=== PATIENT | male | born 1965 | race Caucasian/White ===

== ENCOUNTER 2018-07-16 18:09 | Inpatient (IN) | payer MEDICAID ==
[~2018-07-16] VITALS: Ht 175.3 cm; Wt 73.5 kg
[2018-07-16 18:15] VITALS: BP_SYST 116
[2018-07-16] MEDS ORDERED: cefTRIAXone 1 GM IVPB PREMIX 50 ML IV ONE (19:30)
[2018-07-16] MEDS ORDERED: MORPHINE 4 MG/ML INJ. SYRINGE IVP ONE (19:30)
[2018-07-16] MEDS ORDERED: FOLI-43 PO (19:52)
[2018-07-16] MEDS ORDERED: MIRT15TA7 PO (19:52)
[2018-07-16] MEDS ORDERED: HYDR-2489 PO (19:52)
[2018-07-16] MEDS ORDERED: MULT-1089 PO (19:52)
[2018-07-16] MEDS ORDERED: THIA100T70 PO (19:52)
[2018-07-16] MEDS ORDERED: CYM30 PO (19:52)
[2018-07-16 20:05] LABS: BILIRUBIN,URINE NEGATIVE (NEGATIVE); BLOOD, URINE NEGATIVE (NEGATIVE); CLARITY/URINE CLEAR (CLEAR); COLOR,URINE YELLOW (YELLOW); GLUCOSE,URINE NEGATIVE (NEGATIVE); KETONES,URINE NEGATIVE (NEGATIVE); LEUKOCYTE ESTERASE ,URINE NEGATIVE (NEGATIVE); NITRITE, URINE NEGATIVE (NEGATIVE); PROTEIN URINE NEGATIVE (NEGATIVE); UROBILINOGEN,URINE 0.2 (0.2-1.0)
[2018-07-16 20:06] LABS: BASOPHILS # (AUTO) 0.1 K/uL (0.0-0.2); BASOPHILS % (AUTO) 0.8 % (0.0-2.0); EOSINOPHILS # (AUTO) 0.2 K/uL (0.0-0.4); EOSINOPHILS % (AUTO) 2.3 % (0.0-4.0); HEMATOCRIT 37.1 % (36-54); HEMOGLOBIN 12.5 g/dL (14.0-18.0); LYMPHOCYTES # (AUTO) 1.2 K/uL (1.0-5.5); LYMPHOCYTES % (AUTO) 13.1 % (20.5-51.5); MEAN CORPUSCULAR HEMOGLOBIN 33 pg (27-31); MEAN CORPUSCULAR HGB CONC 34 % (32-36); MEAN CORPUSCULAR VOLUME 98 fL (79.0-98.0); MONOCYTES # (AUTO) 0.8 K/uL (0.0-1.0); MONOCYTES % (AUTO) 8.5 % (1.7-9.3); NEUTROPHILS # (AUTO) 6.9 K/uL (1.8-7.7); NEUTROPHILS % (AUTO) 75.3 % (40.0-70.0); PLATELET COUNT (AUTO) 232 K/uL (130-430); RED BLOOD CELL COUNT(AUTO) 3.81 MIL/uL (4.2-6.2); RED CELL DISTRIBUTION WIDTH 14.8 % (9.0-15.0); WHITE BLOOD COUNT (AUTO) 9.2 K/uL (4.8-10.8)
[2018-07-16 20:16] LABS: CALCIUM 8.5 mg/dL (8.4-11.0); CREATININE 0.75 mg/dL (0.55-1.30); POTASSIUM 3.6 mmol/L (3.5-5.1)
[2018-07-16 20:17] LABS: INR 1.2 (0.80-1.20); PROTHROMBIN TIME 12.1 SECS (9.5-12.5)
[2018-07-16 20:20] LABS: ALBUMIN 2.8 g/dL (3.4-4.8); TOTAL BILIRUBIN 0.3 mg/dL (0.0-1.0)
[2018-07-16] MEDS ORDERED: fentaNYL CITRATE/PF 100 MCG/2 ML AMP IVP ONE ×3 (20:30→23:15)
[2018-07-17] MEDS ORDERED: MORPHINE 4 MG/ML INJ. SYRINGE IVP PRN (01:00)
[2018-07-17 01:19] VITALS: BP_SYST 117
[2018-07-17] MEDS ORDERED: PIPERACILLIN/TAZOBACTAM 3.375 GM/VIAL (ZOSYN) IV ONE (01:34)
[2018-07-17] MEDS ORDERED: VANCOMYCIN HCL 1000 MG/VIAL IV ONE (01:34)
[2018-07-17] MEDS: PIPERACILLIN/TAZO 3.375 GM in NS 50 ML IV SCH ×4 (02:00→20:32)
[2018-07-17] MEDS ORDERED: VANCOMYCIN HCL 1,000 MG in NS 250 ML IV ONE (02:00)
[2018-07-17] MEDS: MORPHINE 4 MG/ML INJ. SYRINGE IVP PRN ×2 (04:10→08:18)
[2018-07-17 08:00] VITALS: BP_SYST 123
[2018-07-17] MEDS ORDERED: METOCLOPRAMIDE HCL 10 MG/2 ML VIAL IVP PRN (11:30)
[2018-07-17] MEDS ORDERED: ONDANSETRON HCL 4 MG/2 ML VIAL IVP PRN ×2 (11:30→17:30)
[2018-07-17] MEDS: HYDROmorphone 2 MG/ML VIAL IVP PRN ×3 (11:55→20:34)
[2018-07-17 12:00] VITALS: BP_SYST 124
[2018-07-17] MEDS: VANCOMYCIN HCL 1,250 MG in NS 250 ML IV SCH (14:38)
[2018-07-17 17:10] VITALS: BP_SYST 117
[2018-07-17] MEDS ORDERED: fentaNYL CITRATE/PF 100 MCG/2 ML AMP IVP PRN (17:30)
[2018-07-17] MEDS ORDERED: KETOROLAC TROMETHAMINE 30 MG VIAL IVP PRN (17:30)
[2018-07-17] MEDS ORDERED: MIDAZOLAM HCL 5 MG/ML VIAL (VERSED) IV ONE (17:50)
[2018-07-17] MEDS ORDERED: PROPOFOL 200MG/ 20ML VIAL (DIPRIVAN) IV ONE (17:50)
[2018-07-17] MEDS ORDERED: LR 1,000 ML IV.SOLN IV ONE (17:50)
[2018-07-17] MEDS ORDERED: NS IRRIG SOLN 1000 ML IR ONE (17:50)
[2018-07-17] MEDS ORDERED: fentaNYL CITRATE/PF 100 MCG/2 ML AMP ONE ×2 (17:50→18:09)
[2018-07-17] MEDS ORDERED: BUPIVACAINE /EPINEPHRINE/PF 0.5% 30 ML VIAL INJ ONE (17:50)
[2018-07-17] MEDS: fentaNYL CITRATE/PF 100 MCG/2 ML AMP IVP PRN ×2 (18:07→18:20)
[2018-07-17 19:25] VITALS: BP_SYST 111
[2018-07-17] MEDS: DULoxetine HCL 30 MG CAPSULE.DR (CYMBALTA) PO SCH (20:32)
[2018-07-17] MEDS: MIRTAZAPINE 15 MG TABLET PO SCH (20:32)
[2018-07-17] MEDS: OXYCODONE/ACETAMINOPHEN *10*mg/325 mg TABLET PO PRN (22:02)
[2018-07-17 23:49] VITALS: BP_SYST 116
[2018-07-18] MEDS: HYDROmorphone 2 MG/ML VIAL IVP PRN ×6 (00:37→21:33)
[2018-07-18] MEDS: PIPERACILLIN/TAZO 3.375 GM in NS 50 ML IV SCH ×5 (02:17→20:24)
[2018-07-18] MEDS: OXYCODONE/ACETAMINOPHEN *10*mg/325 mg TABLET PO PRN ×5 (02:18→19:14)
[2018-07-18] MEDS: VANCOMYCIN HCL 1,250 MG in NS 250 ML IV SCH ×2 (02:18→14:51)
[2018-07-18 07:24] LABS: POTASSIUM 3.7 mmol/L (3.5-5.1)
[2018-07-18 07:25] LABS: CALCIUM 8.6 mg/dL (8.4-10.2); CREATININE 0.74 mg/dL (0.55-1.30)
[2018-07-18 08:07] VITALS: BP_SYST 129
[2018-07-18] MEDS: FOLIC ACID 1 MG TABLET PO SCH (08:14)
[2018-07-18] MEDS: MULTIVITAMINS TAB 1 TABLET PO SCH (08:15)
[2018-07-18] MEDS: THIAMINE HCL 100 MG TABLET PO SCH (08:15)
[2018-07-18 12:29] VITALS: BP_SYST 117
[2018-07-18 16:16] VITALS: BP_SYST 112
[2018-07-18 19:10] VITALS: BP_SYST 125
[2018-07-18] MEDS: MIRTAZAPINE 15 MG TABLET PO SCH (20:24)
[2018-07-18] MEDS: DULoxetine HCL 30 MG CAPSULE.DR (CYMBALTA) PO SCH (20:24)
[2018-07-19] MEDS: OXYCODONE/ACETAMINOPHEN *10*mg/325 mg TABLET PO PRN ×6 (01:09→23:05)
[2018-07-19 01:34] VITALS: BP_SYST 132
[2018-07-19] MEDS: VANCOMYCIN HCL 1,250 MG in NS 250 ML IV SCH ×2 (02:41→14:45)
[2018-07-19] MEDS: HYDROmorphone 2 MG/ML VIAL IVP PRN ×5 (02:42→21:26)
[2018-07-19 07:08] LABS: HEMATOCRIT 38.5 % (36-54); HEMOGLOBIN 12.8 g/dL (14.0-18.0); MEAN CORPUSCULAR HEMOGLOBIN 32 pg (27-31); MEAN CORPUSCULAR HGB CONC 33 % (32-36); MEAN CORPUSCULAR VOLUME 97 fL (79.0-98.0); NEUTROPHILS % (AUTO) 68.9 % (40.0-70.0); PLATELET COUNT (AUTO) 203 K/uL (130-430); RED BLOOD CELL COUNT(AUTO) 3.97 MIL/uL (4.2-6.2); RED CELL DISTRIBUTION WIDTH 14.2 % (9.0-15.0); WHITE BLOOD COUNT (AUTO) 6.1 K/uL (4.8-10.8)
[2018-07-19 07:09] LABS: BASOPHILS % (AUTO) 0.5 % (0.0-2.0); EOSINOPHILS # (AUTO) 0.6 K/uL (0.0-0.4); EOSINOPHILS % (AUTO) 9.1 % (0.0-4.0); LYMPHOCYTES # (AUTO) 0.7 K/uL (1.0-5.5); LYMPHOCYTES % (AUTO) 12.1 % (20.5-51.5); MONOCYTES # (AUTO) 0.6 K/uL (0.0-1.0); MONOCYTES % (AUTO) 9.4 % (1.7-9.3); NEUTROPHILS # (AUTO) 4.2 K/uL (1.8-7.7)
[2018-07-19 08:08] VITALS: BP_SYST 118
[2018-07-19] MEDS: MULTIVITAMINS TAB 1 TABLET PO SCH (08:10)
[2018-07-19] MEDS: FOLIC ACID 1 MG TABLET PO SCH (08:10)
[2018-07-19] MEDS: THIAMINE HCL 100 MG TABLET PO SCH (08:10)
[2018-07-19 09:00] LABS: CALCIUM 8.7 mg/dL (8.4-11.0); CREATININE 0.69 mg/dL (0.55-1.30); POTASSIUM 3.7 mmol/L (3.5-5.1); TOTAL BILIRUBIN 0.4 mg/dL (0.0-1.0)
[2018-07-19 09:01] LABS: ALBUMIN 2.5 g/dL (3.4-4.8)
[2018-07-19] MEDS: HYDROmorphone 1 MG INJ. 1 MG/ML AMPUL IVP PRN (09:25)
[2018-07-19 11:39] VITALS: BP_SYST 124
[2018-07-19 16:41] VITALS: BP_SYST 123
[2018-07-19] MEDS: MIRTAZAPINE 15 MG TABLET PO SCH (20:25)
[2018-07-19] MEDS: DULoxetine HCL 30 MG CAPSULE.DR (CYMBALTA) PO SCH (20:26)
[2018-07-20] MEDS: HYDROmorphone 2 MG/ML VIAL IVP PRN ×6 (01:26→22:25)
[2018-07-20] MEDS: VANCOMYCIN HCL 1,250 MG in NS 250 ML IV SCH ×2 (01:27→14:21)
[2018-07-20 01:48] VITALS: BP_SYST 111
[2018-07-20] MEDS: OXYCODONE/ACETAMINOPHEN *10*mg/325 mg TABLET PO PRN ×5 (04:07→20:44)
[2018-07-20 08:12] VITALS: BP_SYST 128
[2018-07-20] MEDS: FOLIC ACID 1 MG TABLET PO SCH (08:21)
[2018-07-20] MEDS: THIAMINE HCL 100 MG TABLET PO SCH (08:21)
[2018-07-20] MEDS: MULTIVITAMINS TAB 1 TABLET PO SCH (08:21)
[2018-07-20 12:21] VITALS: BP_SYST 127
[2018-07-20 16:53] VITALS: BP_SYST 116
[2018-07-20 20:00] VITALS: BP_SYST 109
[2018-07-20] MEDS: DULoxetine HCL 30 MG CAPSULE.DR (CYMBALTA) PO SCH (20:43)
[2018-07-20] MEDS: MIRTAZAPINE 15 MG TABLET PO SCH (20:44)
[2018-07-21] MEDS: OXYCODONE/ACETAMINOPHEN *10*mg/325 mg TABLET PO PRN ×5 (01:34→23:12)
[2018-07-21] MEDS: VANCOMYCIN HCL 1,250 MG in NS 250 ML IV SCH ×2 (01:35→14:46)
[2018-07-21 02:56] VITALS: BP_SYST 121
[2018-07-21] MEDS: HYDROmorphone 2 MG/ML VIAL IVP PRN ×5 (03:35→21:02)
[2018-07-21 08:30] VITALS: BP_SYST 139
[2018-07-21] MEDS: MULTIVITAMINS TAB 1 TABLET PO SCH (09:41)
[2018-07-21] MEDS: THIAMINE HCL 100 MG TABLET PO SCH (09:41)
[2018-07-21] MEDS: FOLIC ACID 1 MG TABLET PO SCH (09:41)
[2018-07-21 12:53] VITALS: BP_SYST 103
[2018-07-21 16:47] VITALS: BP_SYST 113
[2018-07-21] MEDS: HYDROmorphone 1 MG INJ. 1 MG/ML AMPUL IVP PRN (18:01)
[2018-07-21 20:00] VITALS: BP_SYST 109
[2018-07-21] MEDS: DULoxetine HCL 30 MG CAPSULE.DR (CYMBALTA) PO SCH (21:01)
[2018-07-21] MEDS: MIRTAZAPINE 15 MG TABLET PO SCH (21:01)
[2018-07-21 23:39] VITALS: BP_SYST 113
[2018-07-22] MEDS: HYDROmorphone 2 MG/ML VIAL IVP PRN ×5 (01:15→19:20)
[2018-07-22] MEDS: VANCOMYCIN HCL 1,250 MG in NS 250 ML IV SCH ×2 (01:23→14:22)
[2018-07-22 01:50] LABS: POTASSIUM 4.1 mmol/L (3.5-5.1)
[2018-07-22 01:51] LABS: CALCIUM 8.8 mg/dL (8.4-11.0); CREATININE 0.79 mg/dL (0.55-1.30)
[2018-07-22] MEDS: OXYCODONE/ACETAMINOPHEN *10*mg/325 mg TABLET PO PRN ×4 (03:22→20:40)
[2018-07-22] MEDS: HYDROmorphone 1 MG INJ. 1 MG/ML AMPUL IVP PRN ×2 (06:46→12:42)
[2018-07-22 07:44] VITALS: BP_SYST 125
[2018-07-22] MEDS: MULTIVITAMINS TAB 1 TABLET PO SCH (08:24)
[2018-07-22] MEDS: FOLIC ACID 1 MG TABLET PO SCH (08:24)
[2018-07-22] MEDS: THIAMINE HCL 100 MG TABLET PO SCH (08:24)
[2018-07-22 12:43] VITALS: BP_SYST 109
[2018-07-22 17:17] VITALS: BP_SYST 108
[2018-07-22 19:00] VITALS: BP_SYST 110
[2018-07-22 20:00] VITALS: BP_SYST 110
[2018-07-22] MEDS: MIRTAZAPINE 15 MG TABLET PO SCH (20:34)
[2018-07-22] MEDS: DULoxetine HCL 30 MG CAPSULE.DR (CYMBALTA) PO SCH (20:34)
[2018-07-23] MEDS: HYDROmorphone 2 MG/ML VIAL IVP PRN ×4 (00:01→13:11)
[2018-07-23 00:07] VITALS: BP_SYST 118
[2018-07-23] MEDS: VANCOMYCIN HCL 1,250 MG in NS 250 ML IV SCH ×2 (01:09→13:09)
[2018-07-23] MEDS: MULTIVITAMINS TAB 1 TABLET PO SCH (08:26)
[2018-07-23] MEDS: THIAMINE HCL 100 MG TABLET PO SCH (08:26)
[2018-07-23] MEDS: FOLIC ACID 1 MG TABLET PO SCH (08:26)
[2018-07-23] MEDS: OXYCODONE/ACETAMINOPHEN *10*mg/325 mg TABLET PO PRN ×2 (11:12→15:57)
[2018-07-23 12:14] VITALS: BP_SYST 113
[2018-07-23 14:06] VITALS: BP_SYST 121
[2018-07-23 16:00] VITALS: BP_SYST 115
== END 2018-07-23 16:25 | DRG 721 ==
LOC: SED 18:09 → SMU 07-17 00:54
PROVIDERS: ADMIT Internal Medicine Hospice and Palliative Medicine; ATTEND Internal Medicine Hospice and Palliative Medicine
PROC: 0JB80ZZ Excision of Abdomen Subcutaneous Tissue and Fascia, Open Approach (ICD-10-PCS; principal; 2018-07-17 16:45)
DX: T81.41XA Infection following a procedure, superficial incisional surgical site, initial encounter (principal); E43 Unspecified severe protein-calorie malnutrition; L03.311 Cellulitis of abdominal wall; B95.62 Methicillin resistant Staphylococcus aureus infection as the cause of diseases classified elsewhere; E66.9 Obesity, unspecified; F43.20 Adjustment disorder, unspecified; I10 Essential (primary) hypertension; J45.909 Unspecified asthma, uncomplicated; M48.00 Spinal stenosis, site unspecified; Y83.8 Other surgical procedures as the cause of abnormal reaction of the patient, or of later complication, without mention of misadventure at the time of the procedure; F32.9 Major depressive disorder, single episode, unspecified; F41.9 Anxiety disorder, unspecified; Z68.23 Body mass index [BMI] 23.0-23.9, adult; Y92.89 Other specified places as the place of occurrence of the external cause
CPT/HCPCS: 36415; 71045; 80048; 80053; 80069; 80202-TC; 81003; 83605; 85025; 85610-TC; 87040-TC; 87070; 87070-TC; 87075-TC; 87081; 87186-TC; 93005; 96365; 96375; 96376; 99285; J0696; J1170; J2250; J2270; J2543; J2704; J3010; J3370; J3490; J7030; J7040; J7050; J7120

== ENCOUNTER 2018-08-27 11:36 | Inpatient (IN) | payer MEDICAID ==
[~2018-08-27] VITALS: Ht 170.2 cm; Wt 69.9 kg
[~2018-08-27 11:36] MED LIST: CYM30 PO; FOLI-43 PO; HYDR-4274 PO; MIRT15TA7 PO; MULT-1089 PO; THIA100T70 PO
[2018-08-27 11:41] VITALS: BP_SYST 107
--- NOTE | 2018-08-27 11:48 | NUR ---
Ambulatory to bed 4
--- NOTE | 2018-08-27 11:50 | NUR ---
CHUCK Chance at bedside examining patient.
[2018-08-27] MEDS ORDERED: MORPHINE 4 MG/ML INJ. SYRINGE IVP ONE ×2 (12:00→13:45)
[2018-08-27] MEDS ORDERED: NS 1000 ML IV.SOLN IV ONE (12:00)
--- NOTE | 2018-08-27 12:10 | NUR ---
Note undone in [facility] - 08/27/18 at 1611 by YOLANDA Pt complainingf of back and stomacgh pain r/t recent back surgery: Pt stated he had back surgery with plates inserted in his lumbar region, approximately 2 months ago. Pt is complaining at pain at abdominal surgical site: Purulent drainage noted at site. Pt explained he had an infection at the site 4 weeks ago and had it "cleaned" by his doctor. Addendum: 08/27/18 at 1218 by YOLANDA Amendment undone in [facility] 08/27/18 at 1611 by JAMIL Pt complaining of back and stomach pain r/t recent back surgery: Pt stated he had back surgery with plates inserted in his lumbar region, approximately 2 months ago. Pt is complaining at pain at abdominal surgical site: Purulent drainage noted at site. Pt explained he had an infection at the site 4 weeks ago and had it "cleaned" by his doctor.
[2018-08-27 12:27] LABS: BILIRUBIN,URINE NEGATIVE (NEGATIVE); BLOOD, URINE NEGATIVE (NEGATIVE); CLARITY/URINE CLEAR (CLEAR); COLOR,URINE YELLOW (YELLOW); GLUCOSE,URINE NEGATIVE (NEGATIVE); KETONES,URINE NEGATIVE (NEGATIVE); LEUKOCYTE ESTERASE ,URINE NEGATIVE (NEGATIVE); NITRITE, URINE NEGATIVE (NEGATIVE); PROTEIN URINE NEGATIVE (NEGATIVE); UROBILINOGEN,URINE 0.2 (0.2-1.0)
--- NOTE | 2018-08-27 12:45 | NUR ---
Pt taken to radiology in stable condition
[2018-08-27 12:46] LABS: BASOPHILS # (AUTO) 0.1 K/uL (0.0-0.2); BASOPHILS % (AUTO) 0.7 % (0.0-2.0); EOSINOPHILS # (AUTO) 0.1 K/uL (0.0-0.4); EOSINOPHILS % (AUTO) 1.1 % (0.0-4.0); HEMOGLOBIN 15.5 g/dL (14.0-18.0); LYMPHOCYTES # (AUTO) 1.3 K/uL (1.0-5.5); LYMPHOCYTES % (AUTO) 15.7 % (20.5-51.5); MEAN CORPUSCULAR HEMOGLOBIN 32 pg (27-31); MEAN CORPUSCULAR HGB CONC 33 % (32-36); MEAN CORPUSCULAR VOLUME 96 fL (79.0-98.0); MONOCYTES # (AUTO) 0.7 K/uL (0.0-1.0); MONOCYTES % (AUTO) 7.9 % (1.7-9.3); NEUTROPHILS # (AUTO) 6.4 K/uL (1.8-7.7); NEUTROPHILS % (AUTO) 74.6 % (40.0-70.0); PLATELET COUNT (AUTO) 287 K/uL (130-430); RED BLOOD CELL COUNT(AUTO) 4.91 MIL/uL (4.2-6.2); RED CELL DISTRIBUTION WIDTH 14.3 % (9.0-15.0); WHITE BLOOD COUNT (AUTO) 8.6 K/uL (4.8-10.8)
--- NOTE | 2018-08-27 13:02 | NUR ---
Pt returned from radiology in stable condition
[2018-08-27 13:21] LABS: CALCIUM 8.8 mg/dL (8.4-11.0); CREATININE 0.78 mg/dL (0.55-1.30); POTASSIUM 3.9 mmol/L (3.5-5.1)
[2018-08-27 13:28] LABS: ALBUMIN 3.6 g/dL (3.4-4.8); TOTAL BILIRUBIN 0.3 mg/dL (0.0-1.0)
[2018-08-27 13:29] LABS: INR 1.1 (0.80-1.20); PROTHROMBIN TIME 11.5 SECS (9.5-12.5)
[2018-08-27] MEDS ORDERED: PIPERACILLIN/TAZO 3.375 GM in NS 50 ML IV ONE (13:45)
[2018-08-27] MEDS ORDERED: PIPERACILLIN/TAZOBACTAM 3.375 GM/VIAL (ZOSYN) IV ONE (14:02)
[2018-08-27] MEDS ORDERED: VANCOMYCIN HCL 1,000 MG in NS 250 ML IV SCH (16:00)
--- NOTE | 2018-08-27 16:44 | NUR ---
Patient will be admitted to care of Dr. burks. Admitted to Med-surge unit. Will go to room 112-A. Belongings list completed. Summary report printed. Report will be given at bedside.
--- NOTE | 2018-08-27 17:00 | NUR ---
ADMISSION NOTE Received patient from ER via gurney. Patient admitted with diagnosis of wound infection. Patient is awake, alert, oriented X 4. Patient oriented to hospital room, call light, toileting, pain management and safety-teach back done. Patient informed that Sri will be his nurse and that their room number is 112A. Personal belongings checked and Belongings List documented. Call light within reach.
--- NOTE | 2018-08-27 17:15 | NUR ---
patient aaox 4. has iv access on the left forearm #22. lungs bilaterally clear. abdomen soft and non distended. complained of back pain. vitals signs stable and documented. call lights within reach.
[2018-08-27 17:50] VITALS: BP_SYST 116
--- NOTE | 2018-08-27 18:00 | NUR ---
antibiotic iv given. and norco po pain meds.
[2018-08-27] MEDS: VANCOMYCIN HCL 1,000 MG in NS 250 ML IV SCH (18:05)
[2018-08-27] MEDS: HYDROcodone/ACETAMIN 10-325 MG TAB PO PRN (18:05)
--- NOTE | 2018-08-27 18:19 | NUR ---
PAGED PAGED DOCTOR STOCK FOR ORDERS
--- NOTE | 2018-08-27 18:48 | NUR ---
eating dinner clear liquid.
--- NOTE | 2018-08-27 19:20 | NUR ---
report given to incoming nurse Zaida AGUILAR
--- NOTE | 2018-08-27 19:30 | NUR ---
ROUNDS PATIENT RESTING COMFORTABLY IN BED, NOT IN DISTRESS, VITALS STABLE. DENIES ANY PAIN AND DISCOMFORT AT THIS TIME. ASSESSMENT DONE AND DOCUMENTED. SEE FLOWSHEET. NEEDS ATTENDED TO. SAFETY AND FALL PRECAUTION MEASURES IN PLACED. CALL LIGHT PLACED WITHIN REACH.
[2018-08-27] MEDS: HYDROmorphone 2 MG/ML VIAL IVP PRN (19:54)
[2018-08-27 20:00] VITALS: BP_SYST 107
[2018-08-27] MEDS: MIRTAZAPINE 15 MG TABLET PO SCH (20:29)
[2018-08-27] MEDS: PIPERACILLIN/TAZO 3.375/DEX-IS 50 ML IV SCH (20:29)
[2018-08-27] MEDS: DULoxetine HCL 30 MG CAPSULE.DR (CYMBALTA) PO SCH (20:29)
--- NOTE | 2018-08-27 21:05 | NUR ---
MEDICATION DUE MEDICATIONS GIVEN ORDERED, TOLERATED WELL. WILL CONTINUE TO MONITOR.
--- NOTE | 2018-08-27 23:00 | NUR ---
DR. THOMPSON MACKAY HERE AND SAW PATIENT WITH NEW ORDERS. WILL CONTINUE TO MONITOR.
[2018-08-28] MEDS: HYDROmorphone 2 MG/ML VIAL IVP PRN ×7 (00:02→22:52)
--- NOTE | 2018-08-28 00:32 | NUR ---
PATIENT RESTING: Patient resting quietly. No acute distress noted. Vital signs within normal range.
[2018-08-28 01:38] VITALS: BP_SYST 119
--- NOTE | 2018-08-28 02:13 | NUR ---
ROUNDS PATIENT ASLEEP, NOT IN DISTRESS, NO SIGNS OF ANY PAIN AND DISCOMFORT NOTED. WILL CONTINUE TO MONITOR.
[2018-08-28] MEDS: PIPERACILLIN/TAZO 3.375/DEX-IS 50 ML IV SCH ×4 (02:19→20:44)
--- NOTE | 2018-08-28 04:03 | NUR ---
ROUNDS PATIENT ASLEEP, RESPIRATIONS EVEN AND UNLABORED, WILL CONTINUE TO MONITOR.
[2018-08-28] MEDS: VANCOMYCIN HCL 1,000 MG in NS 250 ML IV SCH ×2 (05:36→17:45)
--- NOTE | 2018-08-28 06:23 | NUR ---
CLOSING NOTES PATIENT AWAKE, VITALS STABLE, NO PAIN AT THIS TIME. ALL NEEDS ATTENDED TO. SAFETY AND FALL PRECAUTION MEASURES MAINTAINED. CALL LIGHT PLACED WITHIN REACH.
--- NOTE | 2018-08-28 07:15 | NUR ---
received report from incoming nurse Zaida rn at the bedside. patient is aaox 4. has iv access on the left hand #22. dry and intact. npo status for surgery by dr Cid today. pre op checklist done. consent signed. instructed patient to be npo status. call lights within reach. no pain nor acute distress noted.
[2018-08-28 07:35] VITALS: BP_SYST 103
--- NOTE | 2018-08-28 08:31 | NUR ---
pain meds given. zozyn iv
--- NOTE | 2018-08-28 10:18 | NUR ---
dr burks came evaluate the patient.
[2018-08-28] MEDS: HYDROcodone/ACETAMIN 10-325 MG TAB PO PRN ×2 (10:21→15:39)
--- NOTE | 2018-08-28 10:21 | NUR ---
norco 10/325 mg tab given sip of water.
--- NOTE | 2018-08-28 10:22 | NUR ---
CONSULTATION PAGED/CALLED Reason for Consultation: [] WOUND INFECTION Person Who was Notified: [] KENNEDY Consulting Physician: [] DR CASTANEDA Car Mover Specialty: [] ID Ordering Physician: [] DR Ai HUERTA
--- NOTE | 2018-08-28 10:28 | NUR ---
Nutrition Update Donny Scale 18 noted. Pt admitted for Wound Infection. Diet: NPO BMI: 24 RD to follow up per nutrition care standards.
--- NOTE | 2018-08-28 11:23 | NUR ---
brought by or for the procedure on the abdominal area.
[2018-08-28] MEDS ORDERED: LR 1,000 ML IV SCH (11:42)
[2018-08-28] MEDS ORDERED: MEPERIDINE HCL/PF 25 MG/ML DISP.SYRIN IVP PRN (11:45)
[2018-08-28] MEDS ORDERED: HYDROmorphone 2 MG/ML VIAL IVP PRN ×3 (11:45)
--- NOTE | 2018-08-28 12:17 | NUR ---
still on procedure.
[2018-08-28] MEDS ORDERED: POLYMYXIN 500,000/BACIT.10,000 UNITS in NS IRR 1 L IR ONE (12:45)
--- NOTE | 2018-08-28 13:19 | NUR ---
patient is coming back from [facility] given report to juliano grullon.
--- NOTE | 2018-08-28 13:20 | NUR ---
incision and drainage done.
--- NOTE | 2018-08-28 13:38 | NUR ---
patient brought back to the room. complaining of pain.
--- NOTE | 2018-08-28 13:39 | NUR ---
dr goldstein called for regular diet on the patient.
[2018-08-28] MEDS: THIAMINE HCL 100 MG TABLET PO SCH (15:39)
[2018-08-28] MEDS: FOLIC ACID 1 MG TABLET PO SCH (15:39)
[2018-08-28 16:00] VITALS: BP_SYST 109
--- NOTE | 2018-08-28 16:00 | NUR ---
Dietitian Recommendations Add Marques BID and Prosource BID to his daily meals to assist in wound healing. Please refer to nutrition Assessment for details. KARY PERRY
--- NOTE | 2018-08-28 16:15 | NUR ---
went to smoke with kathryn urbano.
--- NOTE | 2018-08-28 17:00 | NUR ---
came back to the room. stable. no pain
--- NOTE | 2018-08-28 17:55 | NUR ---
vancomycin iv given.
--- NOTE | 2018-08-28 18:45 | NUR ---
dilaudid 2 mg iv given. assisted on adls.
--- NOTE | 2018-08-28 19:02 | NUR ---
patient eating dinner at this time.
--- NOTE | 2018-08-28 19:14 | NUR ---
PAGED PAGED PRINTING PRESS OPERATOR PHYSICIAN WALESKA DAO. SPOKE WITH ERIN IN REGARDS TO LAB RESULTS.
--- NOTE | 2018-08-28 19:15 | NUR ---
endorsed to incoming nurse Nathaly AGUILAR
--- NOTE | 2018-08-28 19:22 | NUR ---
dr marcelino called for mrsa on the abdomen. no order made so far.
--- NOTE | 2018-08-28 19:42 | NUR ---
Opening Note Patient and bedside report was received from day shift nurseSri RN. Patient is awake, resting in bed. No s/s of acute distress. Plan of care reviewed with patient who is agreeable. Bed alarm on. Safety and isolation measures in place. Call light with patient. Educated pt. to use call light for any needs. Room near nurses station. Will continue to monitor.
--- NOTE | 2018-08-28 20:00 | NUR ---
EDUCATED PT. REGARDING CONTACT ISOLATION PRECAUTIONS Patient requested to ambulate hallways. Contact isolation precautions were reviewed with patient.
[2018-08-28 20:30] VITALS: BP_SYST 105
[2018-08-28] MEDS: MIRTAZAPINE 15 MG TABLET PO SCH (20:45)
[2018-08-28] MEDS: DULoxetine HCL 30 MG CAPSULE.DR (CYMBALTA) PO SCH (20:45)
--- NOTE | 2018-08-28 20:45 | NUR ---
PAIN/DILAUDID GIVEN Patient is c/o moderate pain to back. Dilaudid was given as ordered PRN for moderate pain. See EMAR for details. Snacks were given as requested by patient. Was able to ambulate from bed to bathroom and back again with a steady gait, denying any dizziness or weakness. Safety and fall precautions in place. Bed alarm was refused; education was provided. Will continue with plan of care.
--- NOTE | 2018-08-28 21:15 | NUR ---
REFUSED BED ALARM Patient is educated on safety measures and risk for falls due to medications and potential side effects. Refused bed alarm. Will continue to encourage.
--- NOTE | 2018-08-28 22:52 | NUR ---
C/O SEVERE PAIN; DILAUDID GIVEN Patient is awake with c/o severe pain. Dilaudid was administered as ordered PRN for severe pain. See EMAR for details. Educated pt. regarding medication and potential side effects. Verbalized understanding. Safety and fall precautions were reviewed. Continues to refuse bed alarm. Room near nurses station. Encouraged to use call light for any needs. Will continue to monitor.
--- NOTE | 2018-08-29 00:28 | NUR ---
ROUNDS Patient is awake, watching tv. Inquired about his pain medications. I reviewed his PRN medications and frequency orders. Continues to get out of bed without calling. States he is "okay and fine" and refused bed alarm. Encouraged to use call light for any needs. Will continue to monitor.
[2018-08-29] MEDS: HYDROmorphone 2 MG/ML VIAL IVP PRN ×10 (00:38→23:51)
[2018-08-29] MEDS: PIPERACILLIN/TAZO 3.375/DEX-IS 50 ML IV SCH ×2 (00:52→07:53)
[2018-08-29 02:02] VITALS: BP_SYST 121
--- NOTE | 2018-08-29 02:05 | NUR ---
NEW IV SITE Patient's IV site to left hand 22g is infiltrated and was d/c by LAUREN Andersen; ice packs given for comfort. New IV site to left hand 22g started by resource nurse, Aleksandr Carnes RN. Will continue to monitor.
--- NOTE | 2018-08-29 02:34 | NUR ---
PAIN/DILAUDID GIVEN Patient is awake with c/o severe pain to "stomach and back." Given Dilaudid as ordered PRN for severe pain. Educated pt. regarding med and potential side effects. Verbalized understanding. Bed alarm remains off as requested, despite education regarding fall risk. Room near nurses station. Call light with patient. Will continue with plan of care.
[2018-08-29] MEDS: VANCOMYCIN HCL 1,000 MG in NS 250 ML IV SCH (05:22)
--- NOTE | 2018-08-29 05:27 | NUR ---
PAIN MEDICATION/DUE ABX GIVEN Awake with c/o pain. Due antibiotic and pain medication PRN for moderate pain was given by LAUREN Espinoza.
--- NOTE | 2018-08-29 06:28 | NUR ---
CLOSING NOTES All needs met throughout shift. Patient is resting with eyes closed. No s/s of acute distress. Safety precautions were maintained. SBAR report and care will be given to oncoming day shift nurse.
--- NOTE | 2018-08-29 07:12 | NUR ---
received report from lissette Andersen RN. patient asleep at this time. no pain nor acute distress noted. respiration even and unlabored. abdomen with packing dressing with old blood noted. has iv access on the left hand #22. dry and intact. call lights within reach. bed in low position. still on contact isolation noted.
[2018-08-29 07:58] VITALS: BP_SYST 108
--- NOTE | 2018-08-29 07:58 | NUR ---
DILAUDID 2 MG GIVEN.
--- NOTE | 2018-08-29 10:00 | NUR ---
dr guerrero came evaluate patient.
[2018-08-29 10:26] VITALS: BP_SYST 108
--- NOTE | 2018-08-29 10:35 | NUR ---
patient found in the cafeteria taking coffee. lemon picker the patient with Elina Carlson
[2018-08-29] MEDS: THIAMINE HCL 100 MG TABLET PO SCH (10:50)
[2018-08-29] MEDS: FOLIC ACID 1 MG TABLET PO SCH (10:50)
--- NOTE | 2018-08-29 10:50 | NUR ---
dilaudid 1 mg iv given.
[2018-08-29] MEDS: CLINDAMYCIN 600 MG in D5W 50 ML IV SCH ×3 (10:59→23:52)
[2018-08-29] MEDS: FLUCONAZOLE 100 mg/ NS 50 ML IV SCH (11:00)
[2018-08-29 11:31] VITALS: BP_SYST 140
--- NOTE | 2018-08-29 12:00 | NUR ---
antibiotic therapy given.
--- NOTE | 2018-08-29 12:43 | NUR ---
pain shot given 2 mg iv.
--- NOTE | 2018-08-29 14:05 | NUR ---
DR MACKAY CAME AND EVALUATE THE PATIENT.
--- NOTE | 2018-08-29 14:17 | NUR ---
as per dr goldstein patient can be discharge for follow up in his office and one week. and dressing daily changed with packing.
--- NOTE | 2018-08-29 15:15 | NUR ---
packing dressing changed. incisional area dry/intact with packing on it. no bleeding noted.
--- NOTE | 2018-08-29 15:20 | NUR ---
went to the bathroom.
[2018-08-29 15:41] VITALS: BP_SYST 126
--- NOTE | 2018-08-29 15:47 | NUR ---
PAIN MED 1 MG IV GIVEN. assists on adls.
--- NOTE | 2018-08-29 16:23 | NUR ---
as per Dr Cid, daily dressing on the abdomen with dry dressing on it.
--- NOTE | 2018-08-29 17:36 | NUR ---
dilaudid 2 mg iv given.
--- NOTE | 2018-08-29 18:24 | NUR ---
still eating dinner. no pain nor acute distress noted.
[2018-08-29 19:10] VITALS: BP_SYST 124
--- NOTE | 2018-08-29 19:10 | NUR ---
Initial Assessment Received patient awake watching tv. Patient is awake alert oriented x4. No s/s of any distress noted. Dressing noted to mid abdomen no signs of drainage or bleeding noted. IV noted to L and R hand g 22, no infiltrate and with good blood return. Discussed plan of care with patient and verbalized understanding. Will cont to monitor.
--- NOTE | 2018-08-29 19:21 | NUR ---
endorsed to incoming nurse Hyde RN
--- NOTE | 2018-08-29 21:10 | NUR ---
Rounds Patient is awake watching tv at this time. No s/s of any distress noted. Call light in reach, will cont to monitor.
[2018-08-29] MEDS: MIRTAZAPINE 15 MG TABLET PO SCH (21:32)
[2018-08-29] MEDS: DULoxetine HCL 30 MG CAPSULE.DR (CYMBALTA) PO SCH (21:32)
--- NOTE | 2018-08-29 23:10 | NUR ---
Rounds Patient is resting comfortably in bed with both eyes close. No distress noted. Call light in reach, will cont to monitor.
[2018-08-30 00:36] VITALS: BP_SYST 126
--- NOTE | 2018-08-30 01:10 | NUR ---
Rounds Patient is awake watching tv in bed. comfortably in bed. Call light in reach, will cont to monitor.
[2018-08-30] MEDS: HYDROmorphone 2 MG/ML VIAL IVP PRN ×7 (02:05→20:10)
--- NOTE | 2018-08-30 03:10 | NUR ---
Rounds Patient is resting comfortably in bed. Refused any assistance at this time. Call light in reach, will cont to monitor.
[2018-08-30] MEDS: CLINDAMYCIN 600 MG in D5W 50 ML IV SCH ×3 (05:41→20:04)
--- NOTE | 2018-08-30 06:47 | NUR ---
Final Notes Patient is awake watching tv at this time. No s/s of any distress noted. All needs met and anticipated by noc nurses. Call light in reach, side rails up x3. and bed alarm on for safety. Will endorse care to incoming nurse.
[2018-08-30 06:59] LABS: BASOPHILS % (AUTO) 0.6 % (0.0-2.0); EOSINOPHILS # (AUTO) 0.4 K/uL (0.0-0.4); EOSINOPHILS % (AUTO) 6.5 % (0.0-4.0); HEMATOCRIT 42.4 % (36-54); HEMOGLOBIN 13.9 g/dL (14.0-18.0); LYMPHOCYTES # (AUTO) 1.3 K/uL (1.0-5.5); LYMPHOCYTES % (AUTO) 22.4 % (20.5-51.5); MEAN CORPUSCULAR HEMOGLOBIN 32 pg (27-31); MEAN CORPUSCULAR HGB CONC 33 % (32-36); MEAN CORPUSCULAR VOLUME 97 fL (79.0-98.0); MONOCYTES # (AUTO) 0.6 K/uL (0.0-1.0); NEUTROPHILS # (AUTO) 3.4 K/uL (1.8-7.7); NEUTROPHILS % (AUTO) 59.5 % (40.0-70.0); PLATELET COUNT (AUTO) 250 K/uL (130-430); RED BLOOD CELL COUNT(AUTO) 4.39 MIL/uL (4.2-6.2); RED CELL DISTRIBUTION WIDTH 14.2 % (9.0-15.0); WHITE BLOOD COUNT (AUTO) 5.7 K/uL (4.8-10.8)
--- NOTE | 2018-08-30 08:08 | NUR ---
OPENING NOTES PATIENT RECEIVED RESTING IN BED A&O X4, PATIENT DENIES ANY ACUTE DISTRESS OR PAIN AT THIS TIME, BREATHING IS EVEN AND UNLABORED ON ROOM AIR, EDUCATED PATIENT ON PLAN OF CARE AND CALL LIGHT SYSTEM, WILL CONTINUE TO MONITOR, SAFETY PRECAUTIONS IN PLACE, CALL LIGHT WITHIN REACH.
[2018-08-30 08:13] VITALS: BP_SYST 133
[2018-08-30] MEDS: THIAMINE HCL 100 MG TABLET PO SCH (08:30)
[2018-08-30] MEDS: FOLIC ACID 1 MG TABLET PO SCH (08:30)
--- NOTE | 2018-08-30 09:30 | NUR ---
WOUND CARE ABDOMINAL DRESSING CHANGED, PACKED WITH WET TO DRY GAUZE, SLIGHT BLEEDING NOTED, PATIENT TOLERATED WELL, WILL CONTINUE TO MONITOR, SAFETY PRECAUTIONS IN PLACE, CALL LIGHT WITHIN REACH.
[2018-08-30] MEDS: VANCOMYCIN HCL 1,000 MG in NS 250 ML IV SCH ×2 (10:24→21:19)
--- NOTE | 2018-08-30 10:25 | NUR ---
NOTES PATIENT IS RESTING IN BED A&O X4, PAIN IS CONTROLLED AT THIS TIME, BREATHING IS EVEN AND UNLABORED ON ROOM AIR, PATIENT DENIES ANY ACUTE DISTRESS AT THIS TIME, WILL CONTINUE TO MONITOR, SAFETY PRECAUTIONS IN PLACE, CALL LIGHT WITHIN REACH.
[2018-08-30 11:08] VITALS: BP_SYST 126
--- NOTE | 2018-08-30 12:35 | NUR ---
NOTES PATIENT IS RESTING IN BED A&O X4, IVF INFUSING WELL WITH NO SIGNS OF INFILTRATION, BREATHING IS EVEN AND UNLABORED ON ROOM AIR, NO ACUTE DISTRESS IS NOTED, PAIN IS CONTROLLED AT THIS TIME, WILL CONTINUE TO MONITOR, SAFETY PRECAUTIONS IN PLACE, CALL LIGHT WITHIN REACH.
[2018-08-30] MEDS: FLUCONAZOLE 100 mg/ NS 50 ML IV SCH (12:49)
[2018-08-30] MEDS: HYDROcodone/ACETAMIN 10-325 MG TAB PO PRN (14:12)
[2018-08-30 15:05] VITALS: BP_SYST 128
--- NOTE | 2018-08-30 16:40 | NUR ---
NOTES PATIENT IS SITTING IN BED AFTER AMBULATING AROUND ROOM, BREATHING IS EVEN AND UNLABORED, PAIN IS CONTROLLED AT THIS TIME, NO ACUTE DISTRESS IS NOTED, WILL CONTINUE TO MONITOR, SAFETY PRECAUTIONS IN PLACE, CALL LIGHT WITHIN REACH.
--- NOTE | 2018-08-30 17:00 | NUR ---
PATIENT REMOVED IV STATED THE IV WAS SORE AND BURNING, WILL RESTART NEW ONE.
--- NOTE | 2018-08-30 18:38 | NUR ---
CLOSING NOTE PATIENT IS RESTING IN BED EATING DINNER, PATIENT DENIES ANY ACUTE DISTRESS AT THIS TIME, BREATHING IS EVEN AND UNLABORED, ALL NEEDS WERE MET THROUGHOUT SHIFT, WILL ENDORSE REPORT TO ONCOMING NURSE, SAFETY PRECAUTIONS IN PLACE, CALL LIGHT WITHIN REACH.
--- NOTE | 2018-08-30 19:40 | NUR ---
OPENING NOTES Pt and endorsement received from day shift nurse. Pt is AAOx4, standing in front of his room. Informed pt that charge nurse Virginia will insert IV on him. No complains of pain at this time. No signs of acute distress or SOB noted. Encouraged to use call light when needed. Will continue to monitor.
[2018-08-30] MEDS: MIRTAZAPINE 15 MG TABLET PO SCH (20:09)
[2018-08-30] MEDS: DULoxetine HCL 30 MG CAPSULE.DR (CYMBALTA) PO SCH (20:09)
--- NOTE | 2018-08-30 20:10 | NUR ---
IV INSERTION/DILAUDED 2MG GIVEN New IV site inserted on right hand G22 by charge nurse Virginia, with good blood return and flushable with saline. Pt complained of middle back and abdominal pain with a scale of 9/10. Dilauded 2mg IVP given as ordered and educated pt on side effects like dizziness. Encouraged deep breathing exercises and position of comfort. No signs of acute distress or SOB noted. Safety precautions in place with 2 side rails up, bed alarm on, locked and at lowest position. Call light with pt. Will continue to monitor.
[2018-08-30 20:25] VITALS: BP_SYST 122
--- NOTE | 2018-08-30 23:00 | NUR ---
RESTING Pt is resting in bed with both eyes closed. With visible chest rise and fall with unlabored breathing noted. No complains of pain at this time. No signs of acute distress noted. Safety precautions in place and call light with pt. Will continue to monitor.
[2018-08-31] MEDS: CLINDAMYCIN 600 MG in D5W 50 ML IV SCH ×5 (00:16→22:59)
[2018-08-31 01:15] VITALS: BP_SYST 122
[2018-08-31] MEDS: HYDROmorphone 2 MG/ML VIAL IVP PRN ×6 (01:54→18:26)
--- NOTE | 2018-08-31 01:54 | NUR ---
DILAUDED 2MG GIVEN Pt complained of lower abdominal pain with a scale of 9/10. Dilauded 2mg IVP given as ordered and educated pt on side effects like dizziness. Reencouraged deep breathing exercises and position of comfort. No signs of acute distress or SOB noted. Safety precautions in place and call light with pt. Will continue to monitor.
[2018-08-31] MEDS: VANCOMYCIN HCL 1,000 MG in NS 250 ML IV SCH ×3 (01:59→18:19)
--- NOTE | 2018-08-31 03:35 | NUR ---
RESTING Pt is resting in bed with both eyes closed. With visible chest rise and fall with unlabored breathing noted. No complains of pain at this time. No signs of acute distress or SOB noted. Safety precautions in place and call light with pt. Will continue to monitor.
--- NOTE | 2018-08-31 06:30 | NUR ---
DILAUDED 2MG GIVEN/CLOSING NOTES Pt complained of middle back and abdominal pain with a scale of 8/10. Dilauded 2mg IVP given as ordered at 0600. No signs of acute distress or SOB noted. All needs attended throughout the shift. Safety precautions maintained with 2 side rails up, bed alarm on, locked and at lowest position. Call light with pt. Will endorse to day shift nurse.
--- NOTE | 2018-08-31 07:43 | NUR ---
rn opening note Repost was endorsed by night nurse. Patient appears to be resting with both eyes closed no signs of any distress, breathing is equal and nonlabored. Patient has all safety precautions in place.Patient is close to nurses station. no other needs at this time. will continue to monitor.
[2018-08-31 08:00] VITALS: BP_SYST 128; BP_SYST 147
[2018-08-31] MEDS: FOLIC ACID 1 MG TABLET PO SCH (08:05)
[2018-08-31] MEDS: THIAMINE HCL 100 MG TABLET PO SCH (08:05)
[2018-08-31 08:12] LABS: ALBUMIN 2.8 g/dL (3.4-4.8); CALCIUM 8.4 mg/dL (8.4-11.0); CREATININE 0.61 mg/dL (0.55-1.30); TOTAL BILIRUBIN 0.3 mg/dL (0.0-1.0)
--- NOTE | 2018-08-31 09:55 | NUR ---
Medication Patient complains of pain medicated per order. Patient educated on side effects to call for assistance. call light is with patient. Patient scheduled iv antibiotic also given as ordered. Patient has no other needs at this time. Patient is close to nurses station. will continue to monitor.
[2018-08-31] MEDS ORDERED: WATER FOR IRRIGATION,STERILE 1,000 ML IRRIG.SOLN IR ONE (11:25)
[2018-08-31] MEDS ORDERED: SEVOFLURANE 15 MIN GAS INH ONE (11:25)
[2018-08-31] MEDS ORDERED: MIDAZOLAM HCL 5 MG/5 ML VIAL IVP ONE (11:25)
[2018-08-31] MEDS ORDERED: DEXAMETHASONE SOD PHOSPHATE 4 MG/ML VIAL IVP ONE (11:25)
[2018-08-31] MEDS ORDERED: ONDANSETRON HCL 4 MG/2 ML VIAL IVP ONE (11:25)
[2018-08-31] MEDS ORDERED: PROPOFOL 200MG/ 20ML VIAL (DIPRIVAN) IV ONE (11:25)
[2018-08-31] MEDS ORDERED: ROCURONIUM BROMIDE 10 MG/ML (ZEMURON) IV ONE (11:25)
[2018-08-31] MEDS ORDERED: LR 1,000 ML IV.SOLN IV ONE (11:25)
[2018-08-31] MEDS ORDERED: KETOROLAC TROMETHAMINE 30 MG VIAL IVP ONE (11:25)
[2018-08-31] MEDS ORDERED: fentaNYL CITRATE/PF 100 MCG/2 ML AMP IVP ONE (11:25)
[2018-08-31] MEDS: FLUCONAZOLE 100 mg/ NS 50 ML IV SCH (11:52)
[2018-08-31] MEDS: HYDROcodone/ACETAMIN 10-325 MG TAB PO PRN ×2 (11:53→20:37)
--- NOTE | 2018-08-31 11:53 | NUR ---
Pain medication/ wound care Pain medication given as ordered prior to wound care with wound care nurse. Patient is awake and alert, educated on wound care verbalized understanding. Patient has all safety precautions in place. no other needs at this time. Call light is with patient close to nurses station. will continue to monitor.
[2018-08-31 12:30] VITALS: BP_SYST 130
--- NOTE | 2018-08-31 12:30 | NUR ---
WOUND EVALUATION: Wound Consult received from Dr. Cid. Thank you, Dr. Cid, for the consult. Patient received in a Hammond Bed with an Atmos-Air 9000 mattress, awake, alert, and oriented. Patient is able to turn in bed independently. Donny Score is an 18. Past Medical History: Spinal surgery with anterior abdominal incision two months ago at [facility], had incision dehiscence and infection in the abdomen with subsequent debridement by Dr. Cid and discharge home. Now presents with similar symptoms, with pus and drainage coming from the surgical site. Patient is status post incision and drainage of abdominal wall abscess by Dr. Cid on 08/28/18. Recent Labs: WBC 5.7, RBC 4.39, hemoglobin 13.9, hematocrit 42.4, albumin 2.8. Microbiology: Urine culture results negative. Blood culture results 2 in progress. MRSA screen results negative. Wound culture results positive for MRSA. Surgical specimen wound culture results positive for MRSA. Intrinsic factors that delay wound healing: Hypoalbuminemia. Extrinsic factors that delay wound healing: Decreased mobility. Patient may need further wound care training with home health to prevent recurrence of infection, and will be trained here prior to discharge home. Wound Assessment: 1. Abdomen: Abscess, present on admission. Wound bed has 60% pink tissue, 30% yellow slough, 10% red tissue. No odor, no drainage. Undermining present from 10-2 o'clock (10 o'clock 0.2 cm; 12 o'clock 0.2 cm; 1 o'clock 1.7 cm; 2 o'clock 0.5 cm). Measures 5.0 cm x 2.1 cm x 1.2 cm.. Recommend: Cleanse wound with normal saline. Apply sure prep to corine-wound. Apply hydrogel to wound bed. Pack wound with 1/2 inch iodoform packing strip. Cover with foam dressing. Perform wound care daily, and as needed for dressing soiling or dislodgement. Also recommend: Encourage and assist patient as needed with repositioning every 2 hours with pillow support, and off-load pressure areas with pillows for pressure re-distribution. Offload, elevate and float bilateral heels with pillows. Perform skin care and monitor skin integrity Q shift. Use moisture barrier cream on buttocks and other moisture susceptible areas QID and as needed for soiling.
--- NOTE | 2018-08-31 13:03 | NUR ---
medication Patients scheduled medication given per order. Patient is awake and alert, sitting in bed, eating lunch right now. no signs of any distress, breathing is equal and non labored.patient educated pet supplies salesperson light for assistance. Call light is with patient
--- NOTE | 2018-08-31 15:51 | NUR ---
Discharge Planning: DCP faxed pt orders to [facility] [place] (f [phone] p [phone])
[2018-08-31 16:00] VITALS: BP_SYST 141
--- NOTE | 2018-08-31 16:09 | NUR ---
Per , hold Discharge order. place health and social care teacher consult. Patient is currently refusing to go to a SNF. Patient made aware and verbalizes understanding.
--- NOTE | 2018-08-31 16:26 | NUR ---
SS Notes: FLARER attempted to meet with patient; pt was unavailable. SS will follow up tomorrow.
--- NOTE | 2018-08-31 17:00 | NUR ---
wound care Wound care done per order. Medicated for pain prior to wound care. Patients scheduled medication also given as order. Patient is awake and alert. Educated patient on wound care. Patient verbalized understanding. Patient has no other needs at this time. will continue to monitor. all safety precautions in place.
--- NOTE | 2018-08-31 18:48 | NUR ---
rn close note Patient is awake and alert, sitting in bed, no signs of any distress, breathing is equal and non labored. Patient medicated for pain as requested. Patient has all safety precautions in place. Call light is with him educated to use for assistance. Patient has no other complaints at this time. Patient is stable. will endorse report to oncoming nurse at bed side.
--- NOTE | 2018-08-31 19:23 | NUR ---
OPENING NOTES Pt and endorsement received from day shift nurse. Pt is AAOx4, lying in bed while eating. IVPB patent and infusing well on right hand G22. No complains of pain or discomfort at this time. No signs of acute distress or SOB noted. Safety precautions in place with 3 side rails up, bed alarm on, locked and at lowest position. Call light with pt. Will continue to monitor.
--- NOTE | 2018-08-31 20:05 | NUR ---
SPOKE TO SANDRA FROM [facility] Spoke to Sandra from [facility] and informed her that pt is homeless and that Dr. Zayas has an order to hold discharge for the pt.
[2018-08-31 20:33] VITALS: BP_SYST 115
[2018-08-31] MEDS: MIRTAZAPINE 15 MG TABLET PO SCH (20:36)
[2018-08-31] MEDS: DULoxetine HCL 30 MG CAPSULE.DR (CYMBALTA) PO SCH (20:36)
--- NOTE | 2018-08-31 20:37 | NUR ---
NORCO 10-325 GIVEN Pt complained of left lower abdominal pain with a scale of 6/10. [place]ham 10-325mg PO given as ordered. Snacks given per pt's request. No signs of acute distress noted. Safety precautions in place and call light with pt. Will continue to monitor.
--- NOTE | 2018-08-31 23:13 | NUR ---
RESTING Pt is resting in bed with both eyes closed. With visible chest rise and fall with unlabored breathing noted. IVPB patent and infusing well. No complains of pain or discomfort at this time. No signs of acute distress or SOB noted. Safety precautions in place and call light with pt. Will continue to monitor.
[2018-09-01] MEDS: HYDROmorphone 2 MG/ML VIAL IVP PRN ×5 (00:33→21:12)
--- NOTE | 2018-09-01 00:33 | NUR ---
DILAUDED 2MG GIVEN Pt complained of left lower abdominal pain with a scale of 8/10. Encouraged deep breathing exercises and position of comfort. Dilauded 2mg IVP given as ordered. Educated pt on side effects like dizziness and safety precautions, pt verbalizes understanding. Snacks given per pt's request. No signs of acute distress or SOB noted. Safety precautions in place and call light with pt. Will continue to monitor.
[2018-09-01] MEDS: VANCOMYCIN HCL 1,000 MG in NS 250 ML IV SCH ×3 (01:24→18:13)
[2018-09-01 01:51] VITALS: BP_SYST 111
[2018-09-01] MEDS: CLINDAMYCIN 600 MG in D5W 50 ML IV SCH ×3 (05:00→17:26)
--- NOTE | 2018-09-01 05:00 | NUR ---
DILAUDED 2MG GIVEN Pt complained of left lower abdominal pain with a scale of 8/10. Dilauded 2mg IVP given as ordered. Educated pt on side effects like dizziness and safety precautions, pt verbalizes understanding. Reencouraged deep breathing exercises and position of comfort. No signs of acute distress or SOB noted. Safety precautions in place and call light with pt. Will continue to monitor.
--- NOTE | 2018-09-01 05:43 | NUR ---
CLOSING NOTES Pt is resting in bed with both eyes closed. With visible chest rise and fall with unlabored breathing noted. No complains of pain or discomfort at this time. No signs of acute distress or SOB noted. All needs attended throughout the shift. Safety precautions maintained with 2 side rails up, bed alarm on, locked and at lowest position. Call light with pt. Will continue to monitor and will endorse to day shift nurse.
[2018-09-01 08:00] VITALS: BP_SYST 143
--- NOTE | 2018-09-01 08:11 | NUR ---
Opening notes, received pt in bed, pt is aaox4, c/o pain 01/20, will medicate. iv intact and patent. safety precaution in place. call light in reach. bed in low position. will cont to monitor.
[2018-09-01] MEDS: FOLIC ACID 1 MG TABLET PO SCH (09:10)
[2018-09-01] MEDS: THIAMINE HCL 100 MG TABLET PO SCH (09:10)
--- NOTE | 2018-09-01 10:12 | NUR ---
Discharge Planning: [facility] (f [phone] p [phone]) lm message the RX order needs to worded correctly DCP made CM aware. CM spoke to Kenyatta and gave DCP correct wording and DCP spoke to patient nurse to have a order redone and to re-fax to [facility]. (IV Vanco to dose via peripheral IV; Vanco labs peak and through; wound care. DCP faxed to [facility], DCP will follow up. Addendum: 09/01/18 at 1625 by Echo Bear DP Kenyatta dozier [facility] ( [phone] p [phone]) called and requested H & P, current labs and a order for instruction on flushing. MADDIE made CM aware. Addendum: 09/01/18 at 1628 by Echo Bear DP DCP made nurse aware order is needed for flushing IV.
[2018-09-01] MEDS: FLUCONAZOLE 100 mg/ NS 50 ML IV SCH (11:24)
[2018-09-01] MEDS: HYDROcodone/ACETAMIN 10-325 MG TAB PO PRN (11:24)
[2018-09-01 12:00] VITALS: BP_SYST 109
[2018-09-01 15:36] VITALS: BP_SYST 111
[2018-09-01 16:39] VITALS: BP_SYST 111
--- NOTE | 2018-09-01 18:36 | NUR ---
CLOSING NOTES. PT HAS BEEN STABLE THE WHOLE SHIFT, PT IS AMBULATORY, PT AMBULATED OUTSIDE WITHOUT TELLING THIS NURSE.GIVEN PAIN MEDS REQUESTED BY PT. ALL IV ANTIBIOTICS GIVENN. NEW IV STARTED ON THE LEFT FORE ARM. WORDING FOR ORDERS REQUESTED BY OUTSIDE PHARMACIST CORRECTED PER THEIR REQUEST. WILL ENDORSE TO NIGHT RN.
--- NOTE | 2018-09-01 19:27 | NUR ---
OPENING NOTES Pt and endorsement received from day shift nurse. Pt is resting in bed with both eyes closed. With visible chest rise and fall with unlabored breathing noted. Pt's IVPB patent and infusing well on left FA G20. No complains of pain at this time. No signs of acute distress or SOB noted. Safety precautions in place with 2 side rails up, bed alarm on, locked and at lowest position. Call light with pt. Will continue to monitor.
[2018-09-01 21:07] VITALS: BP_SYST 106
[2018-09-01] MEDS: DULoxetine HCL 30 MG CAPSULE.DR (CYMBALTA) PO SCH (21:11)
[2018-09-01] MEDS: MIRTAZAPINE 15 MG TABLET PO SCH (21:11)
--- NOTE | 2018-09-01 21:12 | NUR ---
DILAUDED 2MG GIVEN Pt complained of left lower abdominal pain with a scale of 8/10. Dilauded 2mg IVP given as ordered. Educated pt on side effects like dizziness and safety precautions, pt verbalizes understanding. Encouraged deep breathing exercises and position of comfort. No signs of acute distress noted. Safety precautions in place and call light with pt. Will continue to monitor.
[2018-09-02] MEDS: CLINDAMYCIN 600 MG in D5W 50 ML IV SCH ×5 (00:21→23:22)
[2018-09-02] MEDS: HYDROcodone/ACETAMIN 10-325 MG TAB PO PRN ×4 (00:29→23:23)
--- NOTE | 2018-09-02 00:29 | NUR ---
NORCO 10-325MG GIVEN Pt complained of left lower abdominal pain with a scale of 6/10. [place] 10-325mg PO given as ordered. Snacks given per pt's request. No signs of acute distress or SOB noted. Safety precautions in place and call light with pt. Will continue to monitor.
[2018-09-02 00:30] VITALS: BP_SYST 128
[2018-09-02] MEDS: VANCOMYCIN HCL 1,000 MG in NS 250 ML IV SCH ×3 (01:23→17:59)
[2018-09-02] MEDS: HYDROmorphone 2 MG/ML VIAL IVP PRN ×5 (02:10→19:48)
--- NOTE | 2018-09-02 02:10 | NUR ---
DILAUDED 2MG GIVEN Pt complained of lower back pain with a scale of 8/10. Dilauded 2mg IVP given as ordered by LAUREN Espinoza. Safety precautions in place and call light with pt. Will continue to monitor.
--- NOTE | 2018-09-02 05:31 | NUR ---
CLOSING NOTES Pt is resting in bed with both eyes closed. With visible chest rise and fall with unlabored breathing noted. IVPB patent and infusing well. No complains of pain or discomfort at this time. No signs of acute distress or SOB noted. All needs attended throughout the shift. Safety precautions maintained with 3 side rails up, bed alarm on, locked and at lowest position. Call light with pt. Will continue to monitor until the end of shift and will endorse to day shift nurse.
--- NOTE | 2018-09-02 06:17 | NUR ---
DILAUDED 2MG GIVEN/CLOSING NOTES Pt complained of middle back and abdominal pain with a scale of 8/10. Dilauded 2mg IVP given as ordered. Reencouraged deep breathing exercises and position of comfort. No signs of acute distress or SOB noted. Coffee given per pt's request. Safety precautions in place and call light with pt. Will endorse to day shift nurse.
[2018-09-02 07:31] LABS: CREATININE 0.84 mg/dL (0.55-1.30); POTASSIUM 4.3 mmol/L (3.5-5.1)
--- NOTE | 2018-09-02 07:50 | NUR ---
OPENING NOTE PATIENT IS RESTING IN BED, ALERT AND ORIENTED, ASSESSMENT COMPLETED, EDUCATED ON PLAN OF CARE AND SAFETY PLAN, PATIENT VERBALIZED UNDERSTANDING, NO OTHER NEEDS, IV LINE INTACT, FALL AND SAFETY PRECAUTIONS IN PLACE.
[2018-09-02 08:29] LABS: CALCIUM 8.6 mg/dL (8.4-10.2)
[2018-09-02] MEDS: FOLIC ACID 1 MG TABLET PO SCH (09:01)
[2018-09-02] MEDS: THIAMINE HCL 100 MG TABLET PO SCH (09:01)
--- NOTE | 2018-09-02 09:03 | NUR ---
SCHEDULED MEDICATIONS PATIENT IS RESTING IN BED, EDUCATED ON MED USE AND SIDE EFFECTS, PATIENT VERBALIZED UNDERSTANDING AND TOLERATED WELL, NO OTHER NEEDS, IV LINE INTACT, FALL AND SAFETY PRECAUTIONS IN PLACE.
[2018-09-02 09:09] VITALS: BP_SYST 120
--- NOTE | 2018-09-02 10:03 | NUR ---
PAIN MEDICATION AND WOUND CARE PATIENT IS RESTING IN BED, EDUCATED ON MED USE AND SIDE EFFECTS, PATIENT VERBALIZED UNDERSTANDING AND TOLERATED WELL, WOUND CARE WAS DONE AND PATIENT TOLERATED WELL, NO OTHER NEEDS, IV LINE INTACT, FALL AND SAFETY PRECAUTIONS IN PLACE.
[2018-09-02 11:39] VITALS: BP_SYST 97
[2018-09-02] MEDS: FLUCONAZOLE 100 mg/ NS 50 ML IV SCH (11:45)
--- NOTE | 2018-09-02 11:45 | NUR ---
Controller Instructor Notes: Per last visits assessment; pt is homeless with no psych history, receives $200/month for GR and food stamps. INTENSIVE CARE SPECIALIST met with pt to discuss DCP. Per pt, he refuses SNF placement due to bad experiences with SNF when he had to do that for his mother. INTENSIVE CARE SPECIALIST educated and encouraged patient to think it over, but pt is adamant about SNF placement. Pt is trying to contact a couple of his friends that lives in the [place] area to see if he could stay there during the duration of his HHS with abx. INTENSIVE CARE SPECIALIST educated pt on the importance of follow up care with PCP; pt nodded and agreed. Pt agreed to inform nurse or SS if contact with friends has been established. INTENSIVE CARE SPECIALIST will remain available. Addendum: 09/02/18 at 1410 by Macy BRITO INTENSIVE CARE SPECIALIST met with pt at bedside. Per pt, he tried contacting his friends but none of them answered his call. DARYL provided pt with [facility] senior care list, homeless assistance and homeless waiver on chart. Addendum: 09/02/18 at 1602 by Macy BRITO INTENSIVE CARE SPECIALIST received a call from Maria Del Carmen Rodriguez (p. [phone]), SW Recycle Worker for Homeless Service Reach Team with the [facility]. Per Ms. Rodriguez, pt had reached out to them for sober living residential placement in the past. Per Ms. Rodriguez, the patient has been accepted to a Sober Living in [place]; but unsure if they will accept him with the IV abx needs. Ms. Rodriguez will call facility and update SS or CM tomorrow.
--- NOTE | 2018-09-02 12:01 | NUR ---
[facility]yatta at [facility] (f [phone] p [phone]) DCP faxed current doctors order for SNF. DCP to follow up.
--- NOTE | 2018-09-02 14:50 | NUR ---
IV RE-INSERTION: Complaining of pain to IV site. Restarted on RIGHT FOREARM. Successful after 1 attempts. Will observe for any signs of infiltration.
--- NOTE | 2018-09-02 15:00 | NUR ---
PAIN MEDICATION PATIENT IS RESTING IN BED, EDUCATED ON MED USE AND SIDE EFFECTS, PATIENT VERBALIZED UNDERSTANDING AND TOLERATED WELL, NO OTHER NEEDS, IV LINE INTACT, FALL AND SAFETY PRECAUTIONS IN PLACE.
[2018-09-02 16:02] VITALS: BP_SYST 122
--- NOTE | 2018-09-02 16:58 | NUR ---
CARLOS PATIENT IS RESTING IN BED, COMPLAINING OF ABDOMINAL PAIN, EDUCATED ON MED USE AND SIDE EFFECTS, PATIENT VERBALIZED UNDERSTANDING AND TOLERATED WELL, NO OTHER NEEDS, IV LINE INTACT, FALL AND SAFETY PRECAUTIONS IN PLACE.
--- NOTE | 2018-09-02 17:59 | NUR ---
VANCOMYCIN PATIENT IS RESTING IN BED, EDUCATED ON MED USE AND SIDE EFFECTS, PATIENT VERBALIZED UNDERSTANDING AND TOLERATED WELL, NO OTHER NEEDS, IV LINE INTACT, FALL AND SAFETY PRECAUTIONS IN PLACE.
--- NOTE | 2018-09-02 19:10 | NUR ---
CLOSING NOTE PATIENT IS RESTING IN BED, ALERT AND ORIENTED, REPORT GIVEN TO NOC SHIFT NURSE AT BEDSIDE, ENDORSED THAT THE NEXT PAIN MEDICATION IS AVAIABLE FOR PATIENT, NO OTHER NEEDS, IV LINE INTACT, FALL AND SAFETY PRECAUTIONS IN PLACE.
--- NOTE | 2018-09-02 19:30 | NUR ---
OPENING NOTE RECEIVED CARE OF PT. PT AAOX4, STANDING IN ROOM, BREATHING UNLABORED TO ROOM AIR. NO SIGNS OF ACUTE DISTRESS. PT REPORTING PAIN TO ABDOMEN. NO SIGN OF INFILTRATION AT IV SITE. ENCOURAGED PT TO CALL FOR ANY ASSISTANCE. SAFETY PRECAUTIONS OBSERVED. WILL MONITOR.
--- NOTE | 2018-09-02 19:52 | NUR ---
PAIN/DILAUDID ADMINISTERED PT REPORTING SEVERE PAIN. DILAUDID 2 MG IVP ADMINISTERED. PT EDUCATED REGARDING MEDICATION AND POTENTIAL SIDE EFFECTS. PT VERBALIZED UNDERSTANDING. SAFETY PRECAUTIONS OBSERVED. WILL MONITOR.
[2018-09-02 20:00] VITALS: BP_SYST 117
[2018-09-02] MEDS: DULoxetine HCL 30 MG CAPSULE.DR (CYMBALTA) PO SCH (21:14)
[2018-09-02] MEDS: MIRTAZAPINE 15 MG TABLET PO SCH (21:14)
--- NOTE | 2018-09-02 23:23 | NUR ---
PAIN/NORCO ADMINISTERED PT REPORTING MODERATE PAIN TO ABDOMEN. NORCO 10-325 MG PO ADMINISTERED. EDUCATION PROVIDED REGARDING MEDICATION AND POTENTIAL SIDE EFFECTS. PT VERBALIZED UNDERSTANDING. SAFETY PRECAUTIONS OBSERVED. WILL MONITOR.
[2018-09-03 00:52] VITALS: BP_SYST 98
[2018-09-03] MEDS: HYDROmorphone 2 MG/ML VIAL IVP PRN ×6 (01:02→21:23)
--- NOTE | 2018-09-03 01:02 | NUR ---
PAIN/DILAUDID ADMINISTERED PT REPORTING SEVERE ABDOMINAL PAIN. DILAUDID 2 MG IVP ADMINISTERED. PT EDUCATED ABOUT MEDICATION AND POTENTIAL SIDE EFFECTS. PT VERBALIZED UNDERSTANDING. SAFETY PRECAUTIONS IN PLACE. WILL MONITOR.
[2018-09-03] MEDS: VANCOMYCIN HCL 1,000 MG in NS 250 ML IV SCH ×3 (01:14→18:14)
--- NOTE | 2018-09-03 02:00 | NUR ---
AMBULATED TO RESTROOM/SNACKS PT AMBULATED TO RESTROOM WITH NURSE ASSIST. PT NOTED TO HAVE STEADY GAIT. PT REPOSITIONED IN BED FOR COMFORT. PT BROUGHT SANDWICH AND SUGAR-FREE PUDDING PER REQUEST. PT ENCOURAGED TO CALL FOR ASSISTANCE. SAFETY PRECAUTIONS IN PLACE. WILL MONITOR.
--- NOTE | 2018-09-03 04:05 | NUR ---
ROUNDS PT RESTING IN BED WATCHING TELEVISION, AAOX4. PT IS BREATHING UNLABORED TO ROOM AIR. NO SIGN OF INFILTRATION AT IV SITE. NO SIGN OF ACUTE DISTRESS NOTED. PT ENCOURAGED TO CALL FOR ASSISTANCE. SAFETY PRECAUTIONS OBSERVED. WILL MONITOR.
[2018-09-03] MEDS: CLINDAMYCIN 600 MG in D5W 50 ML IV SCH ×4 (05:01→23:39)
--- NOTE | 2018-09-03 05:05 | NUR ---
PAIN/DILAUDID ADMINISTERED PT REPORTING SEVERE ABDOMINAL PAIN. DILAUDID 2 MG IVP ADMINISTERED. PT EDUCATED REGARDING MEDICATION AND POTENTIAL SIDE EFFECTS. PT VERBALIZED UNDERSTANDING. SAFETY AND CONTACT PRECAUTIONS OBSERVED. WILL MONITOR.
[2018-09-03] MEDS: HYDROcodone/ACETAMIN 10-325 MG TAB PO PRN ×3 (06:43→23:42)
--- NOTE | 2018-09-03 06:46 | NUR ---
CLOSING NOTE/NORCO ADMINISTERED PT REPORTING MODERATE ABDOMINAL PAIN. NORCO 10-325 MG PO ADMINISTERED. PT EDUCATED ABOUT MEDICATION AND POTENTIAL SIDE EFFECTS. PT VERBALIZED UNDERSTANDING. PT RESTING IN BED, BREATHING UNLABORED TO ROOM AIR. DRESSING ON ABDOMEN IS DRY AND INTACT. IV IS FLUSHING WELL WITH NO SIGN OF INFILTRATION AT IV SITE. SAFETY AND CONTACT PRECAUTIONS MAINTAINED. ALL NEEDS MET DURING SHIFT. WILL ENDORSE CARE AND PAIN REASSESSMENT TO DAY SHIFT RN.
--- NOTE | 2018-09-03 07:55 | NUR ---
OPENING NOTE patient is sitting on the edge of the bed, A&Ox4, assessment completed, patient is complaining of pain but states he will wait until the PRN dilaudid is available, educated on plan of care, patient verbalized understanding, no other needs at this time, bed in the lowest position, two side rails up, call light within reach, IV line clean and intact, bed close to nurse station.
[2018-09-03] MEDS: THIAMINE HCL 100 MG TABLET PO SCH (09:12)
[2018-09-03] MEDS: FOLIC ACID 1 MG TABLET PO SCH (09:12)
--- NOTE | 2018-09-03 09:13 | NUR ---
scheduled medications and pain medication patient is sitting on the edge of the bed, patient complaining of 7/10 abdominal pain, educated on scheduled medications and pain medication use and side effects, patient verbalized understanding and tolerated well, LAB came in to draw blood, no other needs at this time, bed in the lowest position, two side rails up, call light within reach, IV line clean and intact, bed close to nurse station.
[2018-09-03 09:50] VITALS: BP_SYST 98
[2018-09-03 12:16] VITALS: BP_SYST 104
[2018-09-03] MEDS: FLUCONAZOLE 100 mg/ NS 50 ML IV SCH (12:25)
--- NOTE | 2018-09-03 12:25 | NUR ---
tara patient is sitting on the edge of the bed, educated on scheduled medications and pain medication use and side effects, patient verbalized understanding and tolerated well, med given late because there was a prior antibiotic scheduled, no other needs at this time, bed in the lowest position, two side rails up, call light within reach, IV line clean and intact, bed close to nurse station. Addendum: 09/03/18 at 1730 by Giulia Gutierrez RN NIDIA NOT TARA
--- NOTE | 2018-09-03 13:20 | NUR ---
pain medication and wound care patient is resting in bed, pain medication given prior to wound care, educated on medication use and side effects, patient verbalized understanding and tolerated well, wound care done and patient tolerated well, 1200 cleocin given late because prior antibiotics were scheduled, no other needs at this time, bed in the lowest position, two side rails up, call light within reach, IV line clean and intact, bed close to nurse station. Addendum: 09/03/18 at 1606 by Giulia Gutierrez RN DIFLUCDENNIS NOT CLEOCIN Addendum: 09/03/18 at 1728 by Giulia Gutierrez RN ignore amended note
--- NOTE | 2018-09-03 14:19 | NUR ---
Discharge Planning: Kenyatta at [facility] (f [phone] p [phone]) called DCP Radha (f [phone] p [phone]) accepted pt to [facility], Kenyatta requesting update IV medication orders. DCP called nurse, medtech took message. DCP to follow up
--- NOTE | 2018-09-03 15:19 | NUR ---
CAROLNY patient is sitting on the edge of the bed, complaining of abdominal pain, educated on medication use and side effects, patient verbalized understanding and tolerated well, no other needs at this time, bed in the lowest position, two side rails up, call light within reach, IV line clean and intact, bed close to nurse station.
--- NOTE | 2018-09-03 15:30 | NUR ---
VALENTE SANDOVAL Called & spoke w Maria Del Carmen Rodriguez, ph [phone], for Homeless Service Reach Team w the [facility] to f/u on Sober Living in [place]. States can go to the Sober Living once finished w IV abx, not while on IV abx. Spoke w pt @ bedside, regarding accepted @ [facility]. Pt refusing any SNF, states has gone thru SNF's w his grandmother, mother, & himself & cannot go to SNF again. States has tried SNF in past & cannot go. Per pt is trying to contact friends to see if can stay w someone while on IV abx. Called & notified Kenyatta @ [facility], ph [phone], states that she is going to issue a denial. States she has spoken w pt & stated had place to go for home IV abx, then told her would be agreeable w SNF & now refusing SNF. Addendum: 09/03/18 at 1541 by Elisabeth Nunez RN add to note above: updated pt's nurse & Charge nurse. Updated valente Dodge & Elvia SETHI.
[2018-09-03 16:22] VITALS: BP_SYST 121
--- NOTE | 2018-09-03 16:42 | NUR ---
Admitting Diagnosis Wound Infection Reviewed Pertinent Medical/Surgical Hx Medical Record Patient Other Medical History Comment: (Per H&P) Back Surgery 06/2018, Post-Op Recurret Wound infection Subjective Information RN Giulia informed me that Pt was due to be discharged but is refusing transfer to a SNF, so may be staying with us for a while. She also stated that although his PO intake is near 100%, he never touches the [place] / Pro source supplements that were recommended for wound healing after his initial assessment. Was unable to speak to the Pt as he was in the restroom. Showed no signs of coming out after a few min wait, so could not assess the reason for avoiding supplements. Current Diet Order/Nutrition Support Regular (x 7 days) Patient/Significant Other Able To Verbalize Education Provided Not Indicated Pertinent Medications Dilaudid, Mirtazapine, Cymbalta, [place] Pertinent Labs (09/02) Alb 3.1 L Height (Feet) 5 feet Height (Inches) 7.00 inches Weight (Pounds) 154 pounds Weight (Calculated Kilograms) 69.981312 kilograms Patient Weight 69.853 kg Body Mass Index 24.12 kg/m2 %IBW 104 [place]/Adjusted Body Weight 148 Lbs IBW, 67Kg Recent Weight Change Yes - Per Pt: Lost 60 lbs over the last year without trying Weight Status Appropriate Gastrointestinal Symptoms None Food Allergies No Cultural/Ethnic/Faith Belief None noted. Usual Diet At Home Regular. Skin Integrity Comment: Donny score 20 (improving) Current % PO Good (75-100%) Estimated Energy Expenditure (kcals/day) 2515-5638 kcal (25-30 kcal / kg / day) for weight maintenance & Wound heal Estimated Protein Required (g/day) 67-87g Prtn (1-1.3 g Prtn / kg / day for weight maintenance & wound healing Estimated Fluid Required (l/day) 1.7 - 2 L H20 / day Problem/Etiology/Signs/Symptoms No nutrition problem at this time. Expected Outcomes/Goals Labs trending WNL, Normal GI function and skin integrity / wt maintenance. Dietitian Recommendations Continue Diet as prescribed. Follow Up Low Risk: F/U in 7 days
--- NOTE | 2018-09-03 17:22 | NUR ---
pain medication and cleocin patient is resting in bed, pain medication given and scheduled cleocin given, educated on medication use and side effects, patient verbalized understanding and tolerated well, no other needs at this time, bed in the lowest position, two side rails up, call light within reach, IV line clean and intact, bed close to nurse station.
--- NOTE | 2018-09-03 17:38 | NUR ---
EMT came to pickup patient for transfer to [facility], explained to them that it should have been cancelled because patient is refusing to go to a facility, EMT tried to talk to him, patient still refused, propellant charge zone assembler is aware.
--- NOTE | 2018-09-03 18:19 | NUR ---
VANCOMYCIN patient is resting in bed, educated on medication use and side effects, patient verbalized understanding and tolerated well, no other needs at this time, bed in the lowest position, two side rails up, call light within reach, IV line clean and intact, bed close to nurse station.
--- NOTE | 2018-09-03 18:53 | NUR ---
closing note patient is resting in bed, eating dinner, no other needs at this time, will endorse report to noc shift nurse, bed in the lowest position, two side rails up, call light within reach, IV line clean and intact, bed close to nurse station.
[2018-09-03 19:11] VITALS: BP_SYST 106
--- NOTE | 2018-09-03 19:30 | NUR ---
INITIAL NOTES: PT IS RESTING IN BED. WAKES UP WHEN CALL. ALERT, AWAKE,ORIENTED X 4. NO PAIN. STABLE VITAL SIGN. IV SITE IS INTACT- NO SIGN OT INFILTRATION. INSTRUCTED ABOUT THE POC FOR TONIGHT. PT AGREE AND VERBALIZED UNDERSTANDING. NEEDS ATTENDED. CALL LIGHT AND PHONE IN REACH. WILL FOLLOW-UP.
[2018-09-03] MEDS: MIRTAZAPINE 15 MG TABLET PO SCH (20:56)
[2018-09-03] MEDS: DULoxetine HCL 30 MG CAPSULE.DR (CYMBALTA) PO SCH (20:56)
--- NOTE | 2018-09-03 21:23 | NUR ---
PAIN MEDICATION: PT IS INSTRUCTED ABOUT HIS PAIN MEDICATION. PT UNDERSTANDING AND VERBALIZED UNDERSTANDING.
--- NOTE | 2018-09-03 22:00 | NUR ---
NOTES: PT IS WATCHING TV. NO PAIN. STABLE. ASK FOR SNACK. NEEDS ATTENDED. NEELAM LIGHT INREACH. WILL FOLLOW-UP.
--- NOTE | 2018-09-03 23:37 | NUR ---
PT COMPLAIN OF MODERATE PAIN. ASK FOR HIS NORCO- EDUCATE PT ABOUT PAIN MEDICATION. PT AGREE AND VERBALIZED UNDERSTANDING. NEEDS ATTENDED. CALL LIGHT IN REACH. WILL MONITOR.
--- NOTE | 2018-09-04 00:30 | NUR ---
pt ambulate self to bathroom, steady gait, back to bed. needs attended. call light in reach. will follow-up.
--- NOTE | 2018-09-04 02:17 | NUR ---
notes: pt is sleeping, quietly. no sign of pain. no distress. no sob. stable. needs attended. call light in reach. will monitor.
[2018-09-04] MEDS: VANCOMYCIN HCL 1,000 MG in NS 250 ML IV SCH ×3 (02:22→18:20)
--- NOTE | 2018-09-04 04:20 | NUR ---
PAIN MEDICATION: PT CALL FOR PAIN MEDICATION. INSTRUCTED ABOUT HIS PAIN MEDICATION. PT UNDERSTANDING AND VERBALIZED UNDERSTANDING.ASK PT TO GO TO BATHROOM FIRST. NEEDS ATTENDED. CALL LIGHT IN REACH. WILL FOLLOW-UP.
[2018-09-04] MEDS: HYDROmorphone 2 MG/ML VIAL IVP PRN ×4 (04:22→16:52)
--- NOTE | 2018-09-04 06:00 | NUR ---
notes: sleeping, no sign of pain, no sob. stable. needs attended. will follow-up.
[2018-09-04] MEDS: CLINDAMYCIN 600 MG in D5W 50 ML IV SCH ×3 (06:23→17:51)
[2018-09-04] MEDS: HYDROcodone/ACETAMIN 10-325 MG TAB PO PRN ×3 (06:24→17:56)
--- NOTE | 2018-09-04 07:02 | NUR ---
closing: pt is stable the whole shift. no acute distress. good pain control. iv siet is intact. needs attended. maintain on contact isolation the whole shift. will give bedside report to am rn.
[2018-09-04 08:00] VITALS: BP_SYST 109
--- NOTE | 2018-09-04 08:00 | NUR ---
OPENING NOTE: RECEIVED REPORT FROM NIGHT NURSE. PATIENT IS RESTING COMFORTABLY IN BED. NO S/S OF DISTRESS OR SOB. PATIENT IS ALERT AND ORIENTED. PATIENT IS ON ROOM AIR. PATIENT IN CONTACT ISOLATION. CALL LIGHT IN REACH, BED IN LOWEST POSITION, AND WILL CONTINUE TO MONITOR.
[2018-09-04] MEDS: THIAMINE HCL 100 MG TABLET PO SCH (08:43)
[2018-09-04] MEDS: FOLIC ACID 1 MG TABLET PO SCH (08:44)
--- NOTE | 2018-09-04 08:45 | NUR ---
PAIN MEDICATION PATIENT MEDICATION FOR PAIN ACCORDING TO PRN ORDER. PATIENT EDUCATED ON PAIN MEDICATION SIDE EFFECTS AND INSTRUCTED ON USING CALL LIGHT FOR ASSISTANCE BEFORE GETTING UP. PATIENT VERBALIZED UNDERSTANDING. CALL LIGHT IN REACH, BED IN LOWEST POSITION, AND WILL CONTINUE TO MONITOR.
[2018-09-04] MEDS: FLUCONAZOLE 100 mg/ NS 50 ML IV SCH (11:51)
[2018-09-04 12:00] VITALS: BP_SYST 116
--- NOTE | 2018-09-04 15:00 | NUR ---
Wound Care done. Patient tolerated well. See assessment for details. Wound was cleaned with normal saline. Hydrogel applied and packed with iodoform. Covered with foam dressing.
--- NOTE | 2018-09-04 15:00 | NUR ---
WOUND RE-EVALUATION: Patient received in a Celeste Bed with an Atmos-Air 9000 mattress, awake, alert, and oriented. Patient is able to turn in bed independently. Donny Score is a 23. Microbiology: Blood culture results 2 negative. Intrinsic factors that delay wound healing: Hypoalbuminemia. Extrinsic factors that delay wound healing: Decreased mobility. Wound Assessment: 1. Abdomen: Abscess, present on admission. Wound bed has 90% red tissue, 10% yellow tissue. No odor, no drainage. Undermining present from 10-5 o'clock (10 o'clock 0.1 cm; 12 o'clock 1.2 cm; 2 o'clock 1.2 cm; 3 o'clock 0.2 cm; 5 o'clock 0.1 cm). Measures 4.2 cm x 1.7 cm x 1.0 cm. Recommend continue: Cleanse wound with normal saline. Apply sure prep to corine-wound. Apply hydrogel to wound bed. Pack wound with 1/2 inch iodoform packing strip. Cover with foam dressing. Perform wound care daily, and as needed for dressing soiling or dislodgement. Also recommend continue: Encourage and assist patient as needed with repositioning every 2 hours with pillow support, and off-load pressure areas with pillows for pressure re-distribution. Offload, elevate and float bilateral heels with pillows. Perform skin care and monitor skin integrity Q shift. Use moisture barrier cream on buttocks and other moisture susceptible areas QID and as needed for soiling. Patient may need further wound care training with home health to prevent recurrence of infection, and will be trained here prior to discharge home. Recommend home health wound care/wound care training for patient.
[2018-09-04 16:01] VITALS: BP_SYST 104
--- NOTE | 2018-09-04 18:33 | NUR ---
PAIN MEDICATION CHANGE PATIENT WAS REQUESTING THAT DR. HUERTA BE PAGED TO REQUEST HIS DILAUDID TO BE CHANGED TO 3MG INSTEAD OF THE ORDERED DOSE OF 2MG. DR. HUERTA SAID NO AND TO CHANGE HIS MEDICATION TO DILAUDID 2MG PO AND NO LONGER IVP. ORDERS NOTED.
--- NOTE | 2018-09-04 18:35 | NUR ---
CLOSING NOTE: PATIENT IS RESTING COMFORTABLY IN BED. NO S/S OF DISTRESS OR SOB. PATIENT IS ALERT AND ORIENTED, ABLE TO EXPRESS NEEDS, AND ASK FOR ASSISTANCE. ALL NEEDS MET DURING SHIFT. PATIENT ON ROOM AIR, PATIENT IN CONTACT ISOLATION. CALL LIGHT IN REACH, BED IN LOWEST POSITION, AND WILL CONTINUE TO MONITOR.
[2018-09-04 19:15] VITALS: BP_SYST 99
--- NOTE | 2018-09-04 20:00 | NUR ---
INITIAL ROUNDING: Recieved pt AAOx4, c/o pain 04/22. Will medicate per EMAR . Patient has Dilaudid 2 mg PO. Plan of care discussed with the pt, verbalized understanding. Encouraged to use the call light if assistance is needed. Call light within reach.
[2018-09-04] MEDS: MIRTAZAPINE 15 MG TABLET PO SCH (20:54)
[2018-09-04] MEDS: DULoxetine HCL 30 MG CAPSULE.DR (CYMBALTA) PO SCH (20:54)
[2018-09-04] MEDS: HYDROmorphone 2 MG TAB PO PRN (20:56)
--- NOTE | 2018-09-04 22:00 | NUR ---
ROUNDING: Pt resting in bed, upset that his Dilaudid was changed by DR Zayas to PO. Pt said that previous RN Fanny did not tell him that medication had been changed. Pt threatening to go AMA. The conventional mortgage underwriter said that the issue will be brought to his doctor sheyla.
--- NOTE | 2018-09-05 | NUR ---
Pt asleeep . No discomfort noted. Will continue to monitor.
[2018-09-05] MEDS: HYDROmorphone 2 MG TAB PO PRN ×2 (00:27→04:56)
[2018-09-05] MEDS: CLINDAMYCIN 600 MG in D5W 50 ML IV SCH ×2 (00:29→06:14)
[2018-09-05 00:39] VITALS: BP_SYST 125
[2018-09-05] MEDS: VANCOMYCIN HCL 1,000 MG in NS 250 ML IV SCH (02:08)
--- NOTE | 2018-09-05 06:25 | NUR ---
CLOSING NOTES. Pt asleep, no discomfort noted. IV Cleocin infusing. not in acute distress. Call light wthin reach.
--- NOTE | 2018-09-05 07:35 | NUR ---
OPENING NOTE: MORNING REPORT WAS TAKEN FROM ELECTRONIC SCALE SUBASSEMBLER NURSE AT BEDSIDE. PATIENT GETTING OUT OF RESTROOM. PATIENT HAS STEADY GAIT. PATIENT ON ROOM AIR NOT COMPLAINING OF SHORTNESS OF BREATH. IV SALINE LOCKED. PATIENT LAYING IN BED WITH NO SIGNS OF DISTRESS. EDUCATED PATIENT ON IMPORTANCE OF BED ALARM BUT PATIENT REFUSED BED ALARM. CALL LIGHT IS IN REACH. BED IN LOWEST POSITION WITH SIDE RIALS UP. WILL CONTINUE TO MONITOR.
[2018-09-05] MEDS: FOLIC ACID 1 MG TABLET PO SCH (07:56)
[2018-09-05] MEDS: THIAMINE HCL 100 MG TABLET PO SCH (07:56)
[2018-09-05] MEDS: HYDROcodone/ACETAMIN 10-325 MG TAB PO PRN (07:56)
[2018-09-05 08:00] VITALS: BP_SYST 122
--- NOTE | 2018-09-05 08:30 | NUR ---
LATE ENTRY DUE TO PATIENT CARE 08:30 notified by RN in charge that patient went outside even after RN instructed patient to wait for staff member to accompany him. Patient continued walking out , jumped over the wall and onto the street. Notified Security and warehouseman. At around 10:00 am, patient returned to the hospital accompanied by security and wanted to go back to his room. I informed the patient that due to leaving the hospital and being gone for 1.5 hours, is is no longer a patient due to his elopement. Instructed patient to go to ED and be evaluated. Patient left the unit with security to take him to ED.
--- NOTE | 2018-09-05 08:30 | NUR ---
PATIENT ELOPED: PATIENT LEFT OUTSIDE. EDGING MACHINE FEEDER AND SECURITY SAW PATIENT JUMP FENCE AND LEAVE PREMISES.
--- NOTE | 2018-09-05 08:31 | NUR ---
PATIENT ELOPED PATIENT WAS TOLD TO WAIT FOR STAFF TO ACCOMPANY PATIENT OUTSIDE BUT PATIENT REFUSED AND KEPT GOING ALONE. SECURITY WAS CALLED TO FOLLOW AND BRING PATIENT BACK. GOVERNMENT PROGRAM MANAGER FOLLOWED PATIENT AND SAW PATIENT LEAVE PREMESIS. ONCE SECURITY GOT OUTSIDE PATIENT WAS ALREADY GONE.
== END 2018-09-05 08:30 | disposition left against medical advice (07) | DRG 711 ==
LOC: SED 11:36 → SMU 16:00
PROVIDERS: ADMIT Internal Medicine Hospice and Palliative Medicine; ATTEND Internal Medicine Hospice and Palliative Medicine
PROC: 0W9F0ZZ Drainage of Abdominal Wall, Open Approach (ICD-10-PCS; principal; 2018-08-28 11:00)
DX: T81.49XA Infection following a procedure, other surgical site, initial encounter (principal); T81.31XA Disruption of external operation (surgical) wound, not elsewhere classified, initial encounter; K86.1 Other chronic pancreatitis; L02.211 Cutaneous abscess of abdominal wall; I10 Essential (primary) hypertension; F17.200 Nicotine dependence, unspecified, uncomplicated; M48.061 Spinal stenosis, lumbar region without neurogenic claudication; Y83.8 Other surgical procedures as the cause of abnormal reaction of the patient, or of later complication, without mention of misadventure at the time of the procedure; Z22.322 Carrier or suspected carrier of Methicillin resistant Staphylococcus aureus; Z98.1 Arthrodesis status; Y92.89 Other specified places as the place of occurrence of the external cause; Z59.0 Homelessness
CPT/HCPCS: 36415; 71045; 80053; 80069; 80202-TC; 81003; 83605; 85025; 85610-TC; 85730-TC; 87040-TC; 87070; 87070-TC; 87075-TC; 87081; 87086; 87186-TC; 93005; 96361; 96365; 96375; 99285; J1100; J1170; J1450; J1885; J2250; J2270; J2405; J2543; J2704; J3010; J3370; J3490; J7030; J7040; J7050; J7060; J7120

== ENCOUNTER 2018-09-07 15:02 | Emergency (ER) | payer MEDICAID ==
[~2018-09-07] VITALS: Ht 175.3 cm; Wt 70.3 kg
[2018-09-07 15:13] VITALS: BP_SYST 114
--- NOTE | 2018-09-07 15:18 | NUR ---
Patient triaged and placed in waiting room. VSS and patient appears in no acute distress at this time. Accompanied by self, awaiting available bed, and MD notified of need for MSE.
--- NOTE | 2018-09-07 18:20 | NUR ---
Patient to ER bed 5 to gown for evaluation. Side rails up. Assumed care.
--- NOTE | 2018-09-07 18:25 | NUR ---
Patient arrived via POV, AAOx4, and ambulatory with steady gait. Patient came in for evaluation for IV ABX. Patient had back surgery approximately 2 months ago, and infection was present post operatively to abdomen. Patient has 2 incisions to lower back, and incision to lower abdomen. Surgery was done at [facility]. Patient ruptured L4-L5, S1, restructured L3-S1. S/P fall at work. Incision to stomach was draining, has been following a wound care regimen at home, with packing to abdominal wound, covered with foam dressing. Last changed 09/04/18. Back incision are well approximated with light pink periwound. Patient calm and cooperative. Placed in gown for examination. Will follow up as necessary.
--- NOTE | 2018-09-07 18:40 | NUR ---
ER Dr. Maxwell at bedside examining patient.
[2018-09-07] MEDS ORDERED: cefTRIAXone 1 GM IVPB PREMIX 50 ML IV ONE (18:45)
[2018-09-07] MEDS ORDERED: MORPHINE SULFATE 10 MG/ML VIAL IVP ONE (19:15)
[2018-09-07 19:21] LABS: HEMATOCRIT 41.5 % (36-54); HEMOGLOBIN 14.1 g/dL (14.0-18.0); MEAN CORPUSCULAR HEMOGLOBIN 33 pg (27-31); MEAN CORPUSCULAR HGB CONC 34 % (32-36); MEAN CORPUSCULAR VOLUME 97 fL (79.0-98.0); PLATELET COUNT (AUTO) 223 K/uL (130-430); RED BLOOD CELL COUNT(AUTO) 4.29 MIL/uL (4.2-6.2); RED CELL DISTRIBUTION WIDTH 14.4 % (9.0-15.0); WHITE BLOOD COUNT (AUTO) 5.6 K/uL (4.8-10.8)
[2018-09-07 19:22] LABS: BASOPHILS % (AUTO) 0.9 % (0.0-2.0); EOSINOPHILS # (AUTO) 0.2 K/uL (0.0-0.4); EOSINOPHILS % (AUTO) 3.6 % (0.0-4.0); LYMPHOCYTES # (AUTO) 1.8 K/uL (1.0-5.5); LYMPHOCYTES % (AUTO) 31.9 % (20.5-51.5); MONOCYTES # (AUTO) 0.6 K/uL (0.0-1.0); MONOCYTES % (AUTO) 11.4 % (1.7-9.3); NEUTROPHILS # (AUTO) 2.9 K/uL (1.8-7.7); NEUTROPHILS % (AUTO) 52.2 % (40.0-70.0)
[2018-09-07 19:29] LABS: CALCIUM 8.5 mg/dL (8.4-11.0); CREATININE 1.07 mg/dL (0.55-1.30); POTASSIUM 3.6 mmol/L (3.5-5.1)
[2018-09-07 19:35] LABS: ALBUMIN 3.6 g/dL (3.4-4.8); TOTAL BILIRUBIN 0.4 mg/dL (0.0-1.0)
--- NOTE | 2018-09-07 19:55 | NUR ---
End of life care decisions discussed with patient by Dr. Bray. Opportunity for questions and concerns addressed. Patient's code status is DNR, paperwork completed and placed in chart.
--- NOTE | 2018-09-07 20:00 | NUR ---
No adverse reactions noted after medication administration. Will continue to monitor.
[2018-09-07] MEDS ORDERED: PERC10 PO (20:07)
[2018-09-07] MEDS ORDERED: HYDR2TAB4 PO (20:07)
--- NOTE | 2018-09-07 20:07 | NUR ---
Medication reconciliation completed with information provided by patient. Any prior medication reconciliation on file was reviewed and corrected.
--- NOTE | 2018-09-07 21:55 | NUR ---
Patient refused homeless packet at this time.
[2018-09-07 21:58] VITALS: BP_SYST 118
--- NOTE | 2018-09-07 21:58 | NUR ---
Patient given written and verbal discharge instructions and verbalizes understanding. ER MD discussed with patient the results and treatment provided. Patient in stable condition. ID arm band removed. IV catheter removed intact and dressing applied, no active bleeding. Rx of Levaquin given. Patient educated on pain management and to follow up with PMD. Pain Scale 2/10 tolerable to patient. Opportunity for questions provided and answered. Medication side effect fact sheet provided. Patient ambulatory with steady gait.
== END 2018-09-07 21:58 | disposition home or self-care (01) ==
LOC: SED 15:02
DX: T81.31XA Disruption of external operation (surgical) wound, not elsewhere classified, initial encounter (principal); Y83.8 Other surgical procedures as the cause of abnormal reaction of the patient, or of later complication, without mention of misadventure at the time of the procedure; Y92.89 Other specified places as the place of occurrence of the external cause
CPT/HCPCS: 36415; 71045; 80053; 83605; 84484; 85025; 87040; 93005; 96365; 96375; 99284; J0696; J2270

== ENCOUNTER 2021-03-01 16:14 | Emergency (ER) | payer MEDICAID ==
[~2021-03-01] VITALS: Ht 175.3 cm; Wt 59.0 kg
[~2021-03-01 16:14] MED LIST changes: -CYM30 PO; -FOLI-43 PO; -HYDR-4274 PO; +HYDR2TAB4 PO; -MIRT15TA7 PO; -MULT-1089 PO; +PERC10 PO; -THIA100T70 PO
[2021-03-01 16:36] VITALS: BP_SYST 122
[2021-03-01] MEDS ORDERED: OXYCODONE/ACETAMINOPHEN *10*mg/325 mg TABLET PO ONE (21:30)
[2021-03-01] MEDS ORDERED: PERC10 PO (22:45)
[2021-03-01 22:58] VITALS: BP_SYST 122
== END 2021-03-01 22:57 | disposition home or self-care (01) ==
LOC: SED 16:14
DX: M54.5 Low back pain (principal); Z79.899 Other long term (current) drug therapy
CPT/HCPCS: 72131; 76376; 99284

== ENCOUNTER 2021-03-04 20:38 | Emergency (ER) | payer MEDICAID ==
[~2021-03-04] VITALS: Ht 175.3 cm; Wt 59.0 kg
[2021-03-04 21:20] VITALS: BP_SYST 116
--- NOTE | 2021-03-04 21:20 | NUR ---
PATIENT TO ER BED IN HALLWAY.
--- NOTE | 2021-03-04 21:28 | NUR ---
CHUCK Enriquez examining patient.
[2021-03-04] MEDS ORDERED: LORazepam 2 MG/ML VIAL IM ONE (21:30)
[2021-03-04] MEDS ORDERED: KETOROLAC TROMETHAMINE 60 MG/2 ML VIAL IM ONE (21:30)
--- NOTE | 2021-03-04 21:45 | NUR ---
Patient is awake and alert, C/O lower back pain. Pain stated 04/22. VSS. Will continue to monitor.
[2021-03-04] MEDS ORDERED: NAPR-1172 PO (22:25)
[2021-03-04] MEDS ORDERED: MORPHINE 4 MG INJ. 4 MG/ML VIAL IM ONE (23:00)
[2021-03-04] MEDS ORDERED: PERC10 PO (23:12)
[2021-03-04 23:20] VITALS: BP_SYST 116
--- NOTE | 2021-03-04 23:20 | NUR ---
Patient given written and verbal discharge instructions and verbalizes understanding. ER KWAWdiscussed with patient the results and treatment provided. Patient in stable condition. ID arm band removed. Rx of Precocet, librium and NAPROXEN given. Patient educated on pain management and to follow up with PMD. Pain Scale 2/10. Opportunity for questions provided and answered. Medication side effect fact sheet provided.
[2021-03-05] MEDS ORDERED: IPRATROPIUM/ALBUTEROL SULFATE 3 ML AMPUL.NEB (DUONEB) ONE (06:45)
== END 2021-03-04 23:20 | disposition home or self-care (01) ==
LOC: SED 20:38
DX: G89.29 Other chronic pain (principal); M54.5 Low back pain; F10.988 Alcohol use, unspecified with other alcohol-induced disorder; Z79.899 Other long term (current) drug therapy
CPT/HCPCS: 96372; 96374; 99284; J1885; J2060; J2270

== ENCOUNTER 2021-03-05 08:25 | Emergency (ER) | payer MEDICAID ==
[~2021-03-05] VITALS: Ht 175.3 cm; Wt 63.5 kg
[~2021-03-05 08:25] MED LIST changes: +NAPR-1172 PO
[2021-03-05 08:39] VITALS: BP_SYST 126
--- NOTE | 2021-03-05 08:50 | NUR ---
Patient to ER bed H1 to gown for evaluation. Side rails up.
--- NOTE | 2021-03-05 09:00 | NUR ---
CHUCK Bean at bedside examining patient.
[2021-03-05 10:00] VITALS: BP_SYST 126
--- NOTE | 2021-03-05 10:00 | NUR ---
Patient given written and verbal discharge instructions and verbalizes understanding. ER MD discussed with patient the results and treatment provided. Patient in stable condition. ID arm band removed. NO Rx of given. Patient educated on pain management and to follow up with PMD. Pain Scale 0 Opportunity for questions provided and answered. Medication side effect fact sheet provided.
[2021-03-06] MEDS ORDERED: LORA-259 PO (01:59)
== END 2021-03-05 10:00 | disposition home or self-care (01) ==
LOC: SED 08:25
DX: G89.29 Other chronic pain (principal); M54.5 Low back pain; F10.229 Alcohol dependence with intoxication, unspecified; Z59.0 Homelessness; Z76.5 Malingerer [conscious simulation]; Z79.899 Other long term (current) drug therapy; Y90.9 Presence of alcohol in blood, level not specified
CPT/HCPCS: 99283

== ENCOUNTER 2021-03-06 01:26 | Emergency (ER) | payer MEDICAID ==
[~2021-03-06] VITALS: Ht 175.3 cm; Wt 59.0 kg
[2021-03-06 01:30] VITALS: BP_SYST 118
--- NOTE | 2021-03-06 01:30 | NUR ---
Patient triaged and placed in waiting room. VSS and patient appears in no acute distress at this time. Awaiting available bed, and MD notified of need for MSE.
[2021-03-06] MEDS ORDERED: KETOROLAC TROMETHAMINE 60 MG/2 ML VIAL IM ONE (01:45)
--- NOTE | 2021-03-06 01:50 | NUR ---
Patient to ER Chair evaluation.
--- NOTE | 2021-03-06 01:52 | NUR ---
ER examining patient.
[2021-03-06] MEDS ORDERED: LORA-259 PO (01:59)
[2021-03-06] MEDS ORDERED: LORazepam 2 MG/ML VIAL IM ONE (02:00)
--- NOTE | 2021-03-06 02:02 | NUR ---
Scanner is not working, Ativan manually input in the system, given as ordered and health teaching provided.
[2021-03-06 02:13] VITALS: BP_SYST 118
--- NOTE | 2021-03-06 02:13 | NUR ---
Patient given written and verbal discharge instructions and verbalizes understanding. ER MD discussed with patient the results and treatment provided. Patient in stable condition. ID arm band removed. Rx of Ativan given. Patient educated on pain management and to follow up with PMD. Pain Scale 0/10 Opportunity for questions provided and answered. Medication side effect fact sheet provided.
--- NOTE | 2021-03-06 02:13 | NUR ---
Patient given written and verbal discharge instructions and verbalizes understanding. ER MD discussed with patient the results and treatment provided. Patient in stable condition. ID arm band removed. Rx of Ativan given. Patient educated on pain management and to follow up with PMD. Pain Scale 0/10. Opportunity for questions provided and answered. Medication side effect fact sheet provided.
== END 2021-03-06 02:13 | disposition home or self-care (01) ==
LOC: SED 01:26
DX: M54.5 Low back pain (principal); Z79.899 Other long term (current) drug therapy
CPT/HCPCS: 96372; 99284; J1885; J2060

== ENCOUNTER 2021-05-03 18:43 | Emergency (ER) | payer MEDICAID ==
[~2021-05-03] VITALS: Ht 175.3 cm; Wt 68.0 kg
[~2021-05-03 18:43] MED LIST changes: +LORA-259 PO
[2021-05-03 18:45] VITALS: BP_SYST 150
--- NOTE | 2021-05-03 18:45 | NUR ---
BROUGHT BACK TO BED #8 AND TRIAGED. REPORT GIVEN TO BLOCK PILER NURSES
[2021-05-03] MEDS ORDERED: IBUP-1971 PO (18:58)
[2021-05-03] MEDS ORDERED: HYDR-3917 PO (18:58)
[2021-05-03] MEDS ORDERED: MORPHINE 4 MG INJ. 4 MG/ML VIAL IM ONE (19:00)
--- NOTE | 2021-05-03 19:00 | NUR ---
DR. WOOD AT BEDSIDE FOR EVALUATION.
--- NOTE | 2021-05-03 19:10 | NUR ---
PATIENT AAOX4 AND AMBUALTORY FROM HOME C/O 1 WEEK WITH INCREASING BACK PAIN, SCIATICA PAIN DOWN RIGHT LEG. VSS.
[2021-05-03 19:25] VITALS: BP_SYST 150
--- NOTE | 2021-05-03 19:25 | NUR ---
Patient given written and verbal discharge instructions and verbalizes understanding. DR.LEE CHUCK SANON discussed with patient the results and treatment provided. Patient in stable condition. ID arm band removed. Rx of NORCO, IBURPOFEN given. Patient educated on pain management and to follow up with PMD. Pain Scale 0/10. Opportunity for questions provided and answered. Medication side effect fact sheet provided.
== END 2021-05-03 19:25 | disposition home or self-care (01) ==
LOC: SED 18:43
DX: G89.29 Other chronic pain (principal); M54.50 Low back pain, unspecified; Z79.899 Other long term (current) drug therapy
CPT/HCPCS: 96372; 99283; J2270

== ENCOUNTER 2021-07-27 14:24 | Emergency (ER) | payer MEDICAID, SELFPAY ==
[~2021-07-27] VITALS: Ht 167.6 cm; Wt 77.1 kg
[~2021-07-27 14:24] MED LIST changes: +HYDR-3917 PO; +IBUP-1971 PO
[2021-07-27 15:53] VITALS: BP_SYST 129
--- NOTE | 2021-07-27 16:00 | NUR ---
Pt brought by self, A&Ox4, pt presents to ER with back pain, taking percocet and dilaudid but run out of meds, skin pink and warm, cap refill <3.
--- NOTE | 2021-07-27 16:30 | NUR ---
Dr Echols evaluating patient at bedtime
[2021-07-27] MEDS ORDERED: HYDR-3927 PO (17:07)
[2021-07-27] MEDS ORDERED: IBUP-1969 PO (17:07)
[2021-07-27] MEDS ORDERED: MORPHINE 4 MG INJ. 4 MG/ML VIAL IM ONE (17:15)
--- NOTE | 2021-07-27 17:25 | NUR ---
Patient given written and verbal discharge instructions and verbalizes understanding. ER MD discussed with patient the results and treatment provided. Patient in stable condition. ID arm band removed. Rx of Hydrocodone/ Acetaminophen given. Patient educated on pain management and to follow up with PMD. Pain Scale 3/10. Opportunity for questions provided and answered. Medication side effect fact sheet provided.
[2021-07-27 17:31] VITALS: BP_SYST 132
== END 2021-07-27 17:25 | disposition home or self-care (01) ==
LOC: SED 14:24
DX: G89.29 Other chronic pain (principal); M54.50 Low back pain, unspecified; Z79.899 Other long term (current) drug therapy
CPT/HCPCS: 96372; 99283; J2270

== ENCOUNTER 2021-08-18 16:06 | Emergency (ER) | payer MEDICAID, SELFPAY ==
[~2021-08-18] VITALS: Ht 170.2 cm; Wt 77.1 kg
[~2021-08-18 16:06] MED LIST changes: +HYDR-3927 PO; +IBUP-1969 PO
[2021-08-18 16:19] VITALS: BP_SYST 111
[2021-08-18] MEDS ORDERED: MORPHINE 4 MG INJ. 4 MG/ML VIAL IVP ONE (17:45)
[2021-08-18] MEDS ORDERED: IBUP-1971 PO (18:15)
[2021-08-18 20:30] VITALS: BP_SYST 125
== END 2021-08-18 20:30 | disposition home or self-care (01) ==
LOC: SED 16:06
DX: M54.9 Dorsalgia, unspecified (principal); Z79.891 Long term (current) use of opiate analgesic
CPT/HCPCS: 96374; 99283; J2270; 99282

== ENCOUNTER 2021-09-17 18:04 | Emergency (ER) | payer MEDICAID, SELFPAY ==
[~2021-09-17] VITALS: Ht 175.3 cm; Wt 81.6 kg
[2021-09-17 18:13] VITALS: BP_SYST 161
[2021-09-17] MEDS ORDERED: IBUP-1971 PO (18:35)
[2021-09-17] MEDS ORDERED: HYDR-3917 PO (18:35)
[2021-09-17] MEDS: MORPHINE 4 MG INJ. 4 MG/ML VIAL IM ONE (18:53)
[2021-09-17 19:03] VITALS: BP_SYST 159
== END 2021-09-17 19:03 | disposition home or self-care (01) ==
LOC: SED 18:04
DX: G89.29 Other chronic pain (principal); M54.9 Dorsalgia, unspecified; Z98.890 Other specified postprocedural states; Z79.899 Other long term (current) drug therapy
CPT/HCPCS: 96372; 99283; J2270

== ENCOUNTER 2021-09-24 11:50 | Emergency (ER) | payer MEDICAID ==
[~2021-09-24] VITALS: Ht 175.3 cm; Wt 86.2 kg
[2021-09-24 11:58] VITALS: BP_SYST 135
--- NOTE | 2021-09-24 12:07 | NUR ---
Pt in bed #8. Pt c/o low back pain that started 5 days ago. States he was here in the ER a couple days ago for the same reason but ran out of his pain medication which is why he is back due to the pain being 10/10 non-radiating. No trauma. Also states his sciatica nerve pain is bothering him as well. Pt is A&Ox4. Ambulatory with steady gait. Skin intact. HR elevated at 114, other vitals stable. NKA. No known medical conditions. Bed in lowest position.
--- NOTE | 2021-09-24 12:11 | NUR ---
Dr. Cano at bed side examining pt.
[2021-09-24] MEDS ORDERED: HYDR-3927 PO (12:17)
[2021-09-24] MEDS ORDERED: MORPHINE 4 MG INJ. 4 MG/ML VIAL IVP ONE (12:30)
[2021-09-24 12:32] VITALS: BP_SYST 134
--- NOTE | 2021-09-24 12:33 | NUR ---
Patient given written and verbal discharge instructions and verbalizes understanding. ER MD discussed with patient the results and treatment provided. Patient in stable condition. ID arm band removed. Rx of [place] given. Patient educated on pain management and to follow up with PMD. Pain Scale . Opportunity for questions provided and answered. Medication side effect fact sheet provided.
== END 2021-09-24 12:32 | disposition home or self-care (01) ==
LOC: SED 11:50
DX: G89.29 Other chronic pain (principal); M54.50 Low back pain, unspecified; Z79.899 Other long term (current) drug therapy; Z98.890 Other specified postprocedural states
CPT/HCPCS: 96374; 99283; J2270

== ENCOUNTER 2021-11-18 08:07 | Emergency (ER) | payer MEDICAID ==
[~2021-11-18] VITALS: Ht 175.3 cm; Wt 74.8 kg
[2021-11-18 08:07] VITALS: BP_SYST 114
--- NOTE | 2021-11-18 08:07 | NUR ---
BROUGHT IN BY [place] [employer] AND PLACED IN BED #5, TRIAGED. REPORT GIVEN TO DUNIA
--- NOTE | 2021-11-18 08:48 | NUR ---
Pt present to ED with complaint of left sided lower back pain. Pt states that complaint is chronic. Pt states that he takes dilaudid 4mg at home IV for pain and would like to continue said regimen. ED physician informed. Will continue to monitor pt
--- NOTE | 2021-11-18 08:50 | NUR ---
Pt seen by ED physician at bedside
[2021-11-18] MEDS ORDERED: traMADol HCL HCL 50 MG TABLET (ULTRAM) PO ONE (09:00)
[2021-11-18 09:56] VITALS: BP_SYST 128
--- NOTE | 2021-11-18 10:00 | NUR ---
Patient given written and verbal discharge instructions and verbalizes understanding. ER MD discussed with patient the results and treatment provided. Patient in stable condition. ID arm band removed. Patient educated on pain management and to follow up with PMD. Pain Scale [0/10]. Opportunity for questions provided and answered. Medication side effect fact sheet provided.
--- NOTE | 2021-11-18 10:01 | NUR ---
Pt self ambulated out of ED in no acute distress AOx4 GCS 15.
== END 2021-11-18 10:01 | disposition home or self-care (01) ==
LOC: SED 08:07
DX: G89.29 Other chronic pain (principal); M54.50 Low back pain, unspecified; F10.20 Alcohol dependence, uncomplicated; Y90.9 Presence of alcohol in blood, level not specified
CPT/HCPCS: 72100-TC; 99283

== ENCOUNTER 2021-11-21 01:43 | Emergency (ER) | payer MEDICAID ==
[~2021-11-21] VITALS: Ht 175.3 cm; Wt 68.0 kg
[2021-11-21 02:00] VITALS: BP_SYST 122
[2021-11-21] MEDS ORDERED: LORazepam 1 MG TABLET ONE (05:58)
[2021-11-21] MEDS ORDERED: IBUPROFEN 600 MG TABLET PO ONE (06:00)
[2021-11-21] MEDS ORDERED: LORazepam 1 MG TABLET PO ONE (06:00)
[2021-11-21 07:40] VITALS: BP_SYST 122
[2021-11-21] MEDS ORDERED: METH-634 PO (12:56)
== END 2021-11-21 07:40 | disposition home or self-care (01) ==
LOC: SED 01:43
DX: F10.129 Alcohol abuse with intoxication, unspecified (principal); Y90.7 Blood alcohol level of 200-239 mg/100 ml; Z79.899 Other long term (current) drug therapy
CPT/HCPCS: 99283

== ENCOUNTER 2021-11-21 11:46 | Emergency (ER) | payer MEDICAID ==
[~2021-11-21] VITALS: Ht 175.3 cm; Wt 86.2 kg
[2021-11-21 11:46] VITALS: BP_SYST 110
[2021-11-21] MEDS ORDERED: METH-634 PO (12:56)
[2021-11-21] MEDS ORDERED: MORPHINE 4 MG INJ. 4 MG/ML VIAL IM ONE (13:00)
[2021-11-21 13:01] VITALS: BP_SYST 110
== END 2021-11-21 13:01 | disposition home or self-care (01) ==
LOC: SED 11:46
DX: G89.29 Other chronic pain (principal); M54.50 Low back pain, unspecified
CPT/HCPCS: 72100; 96372; 99283; J2270

== ENCOUNTER 2021-11-27 11:24 | Inpatient (IN) | payer MEDICAID ==
[~2021-11-27] VITALS: Ht 177.8 cm; Wt 99.8 kg
[~2021-11-27 11:24] MED LIST changes: +METH-634 PO
[2021-11-27 11:32] VITALS: BP_SYST 114
--- NOTE | 2021-11-27 11:32 | NUR ---
Patient to ER bed 1 to gown for evaluation. Side rails up.
--- NOTE | 2021-11-27 11:59 | NUR ---
56yo m, homeless, biba with c/o ETOH intoxication. as per amr, pt was found laying outside [place] [facility] with altered level of consciousness. Pt was said to have 3 empty bottles of Vodka beside him. Pt reported to have alcoholic breath. in ed, pt aox1. gcs 12. pt arousable to name, able to answer some questions, mumbling. normal rate regular rhythm. clear breath sounds. pt positioned comfortably with 2 siderails up. ermd made aware of pt status. pmh: unable to obtain
[2021-11-27] MEDS ORDERED: NACL 0.9% 1,000 ML IV ONE (12:30)
[2021-11-27 13:12] LABS: BASOPHILS % (AUTO) 0.5 % (0.0-2.0); EOSINOPHILS # (AUTO) 0.1 K/uL (0.0-0.4); EOSINOPHILS % (AUTO) 0.6 % (0.0-4.0); HEMATOCRIT 52.9 % (36-54); HEMOGLOBIN 17.8 g/dL (14.0-18.0); LYMPHOCYTES # (AUTO) 1.8 K/uL (1.0-5.5); LYMPHOCYTES % (AUTO) 19.5 % (20.5-51.5); MEAN CORPUSCULAR HEMOGLOBIN 34 pg (27-31); MEAN CORPUSCULAR HGB CONC 34 % (32-36); MEAN CORPUSCULAR VOLUME 101 fL (79.0-98.0); MONOCYTES # (AUTO) 0.9 K/uL (0.0-1.0); MONOCYTES % (AUTO) 9.1 % (1.7-9.3); NEUTROPHILS # (AUTO) 6.6 K/uL (1.8-7.7); NEUTROPHILS % (AUTO) 70.3 % (40.0-70.0); PLATELET COUNT (AUTO) 224 K/uL (130-430); RED BLOOD CELL COUNT(AUTO) 5.24 MIL/uL (4.2-6.2); RED CELL DISTRIBUTION WIDTH 14.6 % (9.0-15.0); WHITE BLOOD COUNT (AUTO) 9.4 K/uL (4.8-10.8)
[2021-11-27 13:22] LABS: CALCIUM 7.9 mg/dL (8.4-11.0); CREATININE 0.8 mg/dL (0.55-1.30); POTASSIUM 3.4 mmol/L (3.5-5.1)
[2021-11-27 13:29] LABS: ALBUMIN 3.3 g/dL (3.4-4.8); TOTAL BILIRUBIN 0.6 mg/dL (0.0-1.0)
[2021-11-27] MEDS ORDERED: FOLIC ACID 1 MG, THIAMINE HCL 100 MG, MAGNESIUM SULFATE 1 GM, MVI 10 ML in NACL 0.9% 1,... IV SCH (14:15)
[2021-11-27] MEDS ORDERED: FOLIC ACID 1 MG, MVI 10 ML in NACL 0.9% 1,000 ML IV SCH (15:00)
[2021-11-27] MEDS ORDERED: THIAMINE HCL 100 MG, MAGNESIUM SULFATE 1 GM in NS 100 ML IV SCH (15:00)
--- NOTE | 2021-11-27 15:14 | NUR ---
Admit bed requested Patient will be admitted to care of . Admitted to TELE unit. Diagnosis ALCOHOL INTOXICATION Inpatient (Yes or No) YES Observation (Yes or No) NO Orientation concerns or request close to nursing station (Yes or No) YES Covid Status NEG On vent or bipap NO Isolation requirements NONE Needs a sitter NO From Home (Yes or if No enter name of facility) NO- HOMELESS Requires Dialysis (Yes or No) NO Med Rec Completed (Yes of No) YES
[2021-11-27] MEDS ORDERED: HYDROcodone/ACETAMIN 10-325 MG TAB PO ONE (16:00)
--- NOTE | 2021-11-27 16:32 | NUR ---
Patient will be admitted to care of DR ALVARADO. Admitted to TELE unit. Will go to room 121A. Belongings list completed. Complete and up to date summary report printed. SBAR report to be given at bedside with opportunity for questions.
--- NOTE | 2021-11-27 16:32 | NUR ---
Timothy marchmatt in [facility] - 11/27/21 at 1632 by [id number] AD
[2021-11-27] MEDS ORDERED: KETOROLAC TROMETHAMINE 15 MG VIAL IVP PRN (17:00)
[2021-11-27] MEDS ORDERED: POTASSIUM CHLORIDE 20 MEQ TAB.PRT.SR PO ONE (17:00)
--- NOTE | 2021-11-27 17:10 | NUR ---
HIGH ALERT NOTE: Called Dr. khan back at numbers identified within the medical roster to verify physician authenticity.obtained order for KCL 40meq po x1 dose and percocet po prn for pain.
[2021-11-27] MEDS: chlordiazePOXIDE HCL 25 MG CAPSULE PO PRN (17:19)
[2021-11-27] MEDS: OXYCODONE/ACETAMINOPHEN *10*mg/325 mg TABLET PO PRN ×2 (17:20→19:55)
[2021-11-27] MEDS ORDERED: IBUPROFEN 600 MG TABLET PO PRN (18:00)
[2021-11-27] MEDS ORDERED: IBUPROFEN 800 MG TABLET PO PRN (18:00)
[2021-11-27 18:12] VITALS: BP_SYST 133
[2021-11-27] MEDS ORDERED: PANTOPRAZOLE SODIUM 40 MG TAB PO ONE (18:15)
[2021-11-27] MEDS ORDERED: ENOXAPARIN SODIUM 40 MG/0.4 ML SYRINGE SUBCUT ONE (18:15)
[2021-11-27] MEDS: LORazepam 2 MG/ML VIAL IVP PRN ×2 (19:58→23:59)
[2021-11-27 20:00] VITALS: BP_SYST 144
[2021-11-27] MEDS ORDERED: methocarbamoL 500 MG TABLET PO SCH (21:00)
[2021-11-27] MEDS: methocarbamoL 500 MG TABLET PO SCH (21:55)
[2021-11-28] VITALS: BP_SYST 138
[2021-11-28] MEDS: chlordiazePOXIDE HCL 25 MG CAPSULE PO PRN ×3 (01:06→15:28)
[2021-11-28 04:00] VITALS: BP_SYST 138
[2021-11-28] MEDS: LORazepam 2 MG/ML VIAL IVP PRN ×2 (04:11→10:22)
--- NOTE | 2021-11-28 06:08 | NUR ---
0608 Patent is asleep at this time. He was been restless and anxious the whole. Gave 3 doses of Ativan; 1 dose of Percocet. Pt appears incoherent and still appears intoxicated. PIV to LAC intact and patent. Tolerating IVFs well. AAOx3; confuse at times, trying to get out of bed. Unsteady gait. Kept warm and comfortable. All needs attended. Call light placed within reach. Monitored closely.
[2021-11-28 06:55] LABS: BASOPHILS % (AUTO) 0.7 % (0.0-2.0); EOSINOPHILS # (AUTO) 0.1 K/uL (0.0-0.4); EOSINOPHILS % (AUTO) 2.9 % (0.0-4.0); HEMATOCRIT 39.8 % (36-54); HEMOGLOBIN 13.4 g/dL (14.0-18.0); LYMPHOCYTES # (AUTO) 1.5 K/uL (1.0-5.5); LYMPHOCYTES % (AUTO) 30.8 % (20.5-51.5); MEAN CORPUSCULAR HEMOGLOBIN 34 pg (27-31); MEAN CORPUSCULAR HGB CONC 34 % (32-36); MEAN CORPUSCULAR VOLUME 100 fL (79.0-98.0); MONOCYTES # (AUTO) 0.5 K/uL (0.0-1.0); NEUTROPHILS # (AUTO) 2.8 K/uL (1.8-7.7); NEUTROPHILS % (AUTO) 55.6 % (40.0-70.0); PLATELET COUNT (AUTO) 186 K/uL (130-430); RED BLOOD CELL COUNT(AUTO) 3.97 MIL/uL (4.2-6.2); RED CELL DISTRIBUTION WIDTH 14.5 % (9.0-15.0)
[2021-11-28 07:18] LABS: CALCIUM 7.1 mg/dL (8.4-11.0); CREATININE 0.78 mg/dL (0.55-1.30); POTASSIUM 3.8 mmol/L (3.5-5.1)
[2021-11-28 08:00] VITALS: BP_SYST 125
[2021-11-28] MEDS: methocarbamoL 500 MG TABLET PO SCH (08:22)
[2021-11-28] MEDS ORDERED: ENOXAPARIN SODIUM 40 MG/0.4 ML SYRINGE SUBCUT SCH (09:00)
[2021-11-28] MEDS ORDERED: PANTOPRAZOLE SODIUM 40 MG TAB PO SCH (09:00)
[2021-11-28] MEDS: OXYCODONE/ACETAMINOPHEN *10*mg/325 mg TABLET PO PRN ×2 (10:21→15:28)
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
[2021-11-28 12:15] VITALS: BP_SYST 154
--- NOTE | 2021-11-28 14:24 | NUR ---
Legal Job Titles SALES AND SERVICE ADVISORMichelle Mariee contacted [facility] worker Risamoiz Valdovinos to obtain information regarding housing as patient is ready for discharge. Voicemail requesting call back was left Addendum: 11/28/21 at 1525 by Jaylene Wagner MSW SALES AND SERVICE ADVISOR received a call back from Risa nino the patient was enrolled in [facility] and would need to contact Veronica [phone] Addendum: 11/28/21 at 1534 by Jaylene Wagner MSW SALES AND SERVICE ADVISOR provided patient with information to contact Veronica @ . Patient was stating he was going to be leaving [place]
--- NOTE | 2021-11-28 14:25 | NUR ---
Dry Cell And Battery Assembler NUT AND BOLT ASSEMBLER avelina contacted Shweta at [facility] to obtain information on housing options for patient. According to Shweta the process would not be done in time as patient is currently ready for discharge.
--- NOTE | 2021-11-28 15:15 | NUR ---
Fulfillment Coordinator In an attempt [place] with [place], DARYL Mariee contacted the following shelters; [facility], no beds available [facility], 4-6 week waiting lists [facility], no beds available SOLID STATE TESTERMichelle Mariee met with patient at bedside to inform of [place] [facility] [place] issues. SOLID STATE TESTER explored inpatient rehab programs, but patient would only express his desire for pain meds and leaving to smoke a cigarette. SOLID STATE TESTER encouraged patient to consider inpatient to address ETOH abuse, patient shared he had just been in [place] for "a few days" but left AMA because they would not provide him Ativan. SOLID STATE TESTER again asked patient if he'd like paperwork to be sent for review to an inpatient rehab program but he expressed not wanting to participate. Security has also provided patient with additional clothing. SOLID STATE TESTER provided Homeless waiver to LAUREN Kim to be signed upon discharge
--- NOTE | 2021-11-28 15:30 | NUR ---
director social service spoke to patient and gave her resources and offered him to go to long-term and alcohol abuse program but patient refused all services and resources offered and wants to go AMA. patient signed waiver and AMA form paged to inform him that patient went AMA.
== END 2021-11-28 15:30 | disposition left against medical advice (07) | DRG 770 ==
LOC: SED 11:24 → STU 14:06
PROVIDERS: ADMIT Family Medicine; ATTEND Family Medicine
DX: F10.229 Alcohol dependence with intoxication, unspecified (principal); E87.0 Hyperosmolality and hypernatremia; G89.29 Other chronic pain; Z20.822 Contact with and (suspected) exposure to COVID-19; Y90.8 Blood alcohol level of 240 mg/100 ml or more; M54.9 Dorsalgia, unspecified; Z79.899 Other long term (current) drug therapy
CPT/HCPCS: 36415; 80048; 80053; 83690; 83735; 85025; 96361; 96365; 96366; 99285; G0378; G0482; J1650; J1885; J2060; J3411; J3475; J3490; J7030

== ENCOUNTER 2022-02-13 11:38 | Emergency (ER) | payer MEDICAID ==
[~2022-02-13] VITALS: Ht 177.8 cm; Wt 77.1 kg
[2022-02-13 11:41] VITALS: BP_SYST 109
--- NOTE | 2022-02-13 11:44 | NUR ---
Placed in room 2 . Placed on administrative fellow, blood pressure machine and pulse oximeter. To gown for exam. Side rails up. Report given to LAUREN VELÁZQUEZ.
--- NOTE | 2022-02-13 11:46 | NUR ---
DR BOLAND IN ROOM FOR EXAM
--- NOTE | 2022-02-13 11:48 | NUR ---
bacteriology technician at bedside.
[2022-02-13 11:59] LABS: BASOPHILS # (AUTO) 0.1 K/uL (0.0-0.2); BASOPHILS % (AUTO) 3.7 % (0.0-2.0); EOSINOPHILS # (AUTO) 0.1 K/uL (0.0-0.4); EOSINOPHILS % (AUTO) 1.3 % (0.0-4.0); HEMOGLOBIN 14.6 g/dL (14.0-18.0); LYMPHOCYTES # (AUTO) 0.8 K/uL (1.0-5.5); LYMPHOCYTES % (AUTO) 20.9 % (20.5-51.5); MEAN CORPUSCULAR HEMOGLOBIN 34 pg (27-31); MEAN CORPUSCULAR HGB CONC 34 % (32-36); MEAN CORPUSCULAR VOLUME 101 fL (79.0-98.0); MONOCYTES # (AUTO) 0.3 K/uL (0.0-1.0); MONOCYTES % (AUTO) 7.5 % (1.7-9.3); NEUTROPHILS # (AUTO) 2.7 K/uL (1.8-7.7); NEUTROPHILS % (AUTO) 66.6 % (40.0-70.0); PLATELET COUNT (AUTO) 343 K/uL (130-430); RED BLOOD CELL COUNT(AUTO) 4.26 MIL/uL (4.2-6.2); RED CELL DISTRIBUTION WIDTH 14.2 % (9.0-15.0)
[2022-02-13 13:55] LABS: CALCIUM 8.3 mg/dL (8.4-11.0); CREATININE 0.7 mg/dL (0.55-1.30)
[2022-02-13 14:00] LABS: TOTAL BILIRUBIN 0.3 mg/dL (0.0-1.0)
--- NOTE | 2022-02-13 14:49 | NUR ---
PT WITH EYES CLOSED, IN NAD. RESP EVEN AND UNLABORED, ON RA @98%
[2022-02-13 14:50] VITALS: BP_SYST 133
--- NOTE | 2022-02-13 15:55 | NUR ---
PT HAS LEFT THE ER AND RETURNED X3, STATES HE IS GOING OUT TO SMOKE. PT IS ALERT AND ORIENTED, PT AMBULATING WITH STEADY GAIT. DR WOOD AWARE.
[2022-02-13] MEDS ORDERED: IBUPROFEN 800 MG TABLET PO ONE (16:00)
[2022-02-13] MEDS ORDERED: ONDANSETRON 4 MG ODT TAB PO ONE (16:00)
--- NOTE | 2022-02-13 16:01 | NUR ---
EXPLAINED TO PT THAT HE CAN NOT KEEP GOING IN AND OUT OF ER. PT STATES HE UNDERSTANDS AND WON'T DO IT AGAIN. PT ALERT AND ORIENTED X3.
--- NOTE | 2022-02-13 16:15 | NUR ---
PT ELOPED FACILITY WITH STEADY GAIT, PT IS ALERT AND ORIENTED X3.
[2022-02-14 00:53] LABS: BILIRUBIN,URINE NEGATIVE (NEGATIVE); BLOOD, URINE NEGATIVE (NEGATIVE); CLARITY/URINE CLEAR (CLEAR); COLOR,URINE YELLOW (YELLOW); GLUCOSE,URINE NEGATIVE (NEGATIVE); KETONES,URINE NEGATIVE (NEGATIVE); LEUKOCYTE ESTERASE ,URINE NEGATIVE (NEGATIVE); NITRITE, URINE NEGATIVE (NEGATIVE); PH,URINE 6.5 (5.0-8.0); PROTEIN URINE NEGATIVE (NEGATIVE); UROBILINOGEN,URINE 0.2 (0.2-1.0)
[2022-02-14 03:31] LABS: BARBITURATE, URINE NEGATIVE (NEG <=200); BENZODIAZEPINE, URINE POSITIVE (NEG <=150); CANNABINOID, URINE NEGATIVE (NEG <=50); COCAINE, URINE NEGATIVE (NEG <=150); METHAMPHETAMINES SCREEN,URINE NEGATIVE (NEG <=500); OPIATE, URINE NEGATIVE (NEG <=100); PHENCYCLIDINE SCREEN,URINE NEGATIVE (NEG <=25); UR TRICYCLIC ANTIDEPRESSANTS NEGATIVE (NEG <=300); URINE AMPHETAMINE NEGATIVE (NEG <=500); URINE METHADONE NEGATIVE (NEG <=200); URINE OXYCODONE SCREEN POSITIVE (NEG <=100); URINE PROPOXYPHENE SCREEN NEGATIVE (NEG <=300)
== END 2022-02-13 16:15 | disposition left against medical advice (07) ==
LOC: SED 11:38
DX: F10.10 Alcohol abuse, uncomplicated (principal); M54.50 Low back pain, unspecified; M79.602 Pain in left arm; Z79.899 Other long term (current) drug therapy
CPT/HCPCS: 99284; 70450; 80307; 80053; 85025; 36415; 72125; 76376; 81003; G0482; Q0162

== ENCOUNTER 2022-02-13 20:47 | Emergency (ER) | payer MEDICAID ==
[~2022-02-13] VITALS: Ht 177.8 cm; Wt 68.0 kg
[2022-02-13 20:47] VITALS: BP_SYST 140
[2022-02-13 21:43] LABS: BASOPHILS # (AUTO) 0.1 K/uL (0.0-0.2); BASOPHILS % (AUTO) 1.3 % (0.0-2.0); EOSINOPHILS % (AUTO) 0.6 % (0.0-4.0); HEMOGLOBIN 14.8 g/dL (14.0-18.0); LYMPHOCYTES # (AUTO) 1.7 K/uL (1.0-5.5); LYMPHOCYTES % (AUTO) 26.9 % (20.5-51.5); MEAN CORPUSCULAR HEMOGLOBIN 35 pg (27-31); MEAN CORPUSCULAR HGB CONC 34 % (32-36); MEAN CORPUSCULAR VOLUME 101 fL (79.0-98.0); MONOCYTES # (AUTO) 0.5 K/uL (0.0-1.0); MONOCYTES % (AUTO) 7.4 % (1.7-9.3); NEUTROPHILS # (AUTO) 3.9 K/uL (1.8-7.7); NEUTROPHILS % (AUTO) 63.8 % (40.0-70.0); PLATELET COUNT (AUTO) 360 K/uL (130-430); RED BLOOD CELL COUNT(AUTO) 4.28 MIL/uL (4.2-6.2); RED CELL DISTRIBUTION WIDTH 14.4 % (9.0-15.0); WHITE BLOOD COUNT (AUTO) 6.2 K/uL (4.8-10.8)
[2022-02-13 23:21] LABS: ACETONE, SERUM NEGATIVE (NEGATIVE)
[2022-02-13 23:33] LABS: ANION GAP 11 (5-15); CALCIUM 8.1 mg/dL (8.4-11.0); CHLORIDE 110 mmol/L (98-107); CREATININE 0.76 mg/dL (0.55-1.30); GLUCOSE 96 mg/dL (70-99); POTASSIUM 3.1 mmol/L (3.5-5.1); SODIUM SERUM 147 mmol/L (136-145); UREA NITROGEN, BLOOD 8 mg/dL (8-21)
[2022-02-13 23:38] LABS: ALANINE AMINOTRANSFERASE 43 U/L (12-78); ALCOHOL, BLOOD 287 mg/dL (<10); AMYLASE 57 U/L (0-100); ASPARTATE AMINOTRANSFERASE 38 U/L (10-37); LIPASE 6 U/L (73-393); TOTAL BILIRUBIN 0.2 mg/dL (0.0-1.0)
[2022-02-13] MEDS ORDERED: MAGNESIUM SULFATE 50 ML IV ONE (23:45)
[2022-02-13] MEDS ORDERED: KETOROLAC TROMETHAMINE 30 MG VIAL IVP ONE (23:45)
[2022-02-13] MEDS ORDERED: THIAMINE HCL 100 MG in NS 50 ML IV ONE (23:45)
[2022-02-13] MEDS ORDERED: FOLIC ACID 5 MG/ML VIAL IV ONE (23:45)
[2022-02-13] MEDS ORDERED: NACL 0.9% 1,000 ML IV ONE (23:45)
[2022-02-13] MEDS ORDERED: KETAMINE 30 MG/3 ML SYRINGE IVP ONE (23:45)
[2022-02-14] MEDS ORDERED: HALOPERIDOL LACTATE 5 MG/ML VIAL IM ONE
[2022-02-14 00:01] LABS: GFR AFRICAN AMERICAN 136 mL/min (>90)
[2022-02-14] MEDS ORDERED: DIPHENHYDRAMINE INJ 50 MG/ML VIAL IM ONE (00:45)
[2022-02-14] MEDS ORDERED: KCL 40 mEq in 100 mL (PREMIX) 100 ML IV ONE (02:00)
[2022-02-14] MEDS ORDERED: FOLIC ACID 1 MG, THIAMINE HCL 100 MG, MAGNESIUM SULFATE 2 GM, MVI 10 ML in NACL 0.9% 1,... IV ONE (02:45)
[2022-02-14] MEDS ORDERED: THIAMINE HCL 100 MG/ML VIAL ONE (02:46)
[2022-02-14] MEDS ORDERED: MVI 10 ML VIAL IV ONE (02:47)
[2022-02-14] MEDS ORDERED: FOLIC ACID 5 MG/ML VIAL IV ONE (02:47)
[2022-02-14] MEDS ORDERED: MAGNESIUM SULFATE 1 GM/2 ML VIAL ONE (02:47)
[2022-02-14] MEDS ORDERED: KCL 20 mEq in 100 mL (PREMIX) 100 ML IV ONE (07:11)
[2022-02-14] MEDS ORDERED: ACETAMINOPHEN 325 MG TABLET PO ONE (08:30)
[2022-02-14] MEDS ORDERED: POTASSIUM CHLORIDE 20 MEQ TAB.PRT.SR PO ONE (08:45)
[2022-02-14 11:20] VITALS: BP_SYST 128
== END 2022-02-14 11:18 | disposition home or self-care (01) ==
LOC: SED 20:47
DX: S52.502A Unspecified fracture of the lower end of left radius, initial encounter for closed fracture (principal); E87.6 Hypokalemia; F10.129 Alcohol abuse with intoxication, unspecified; W18.30XA Fall on same level, unspecified, initial encounter; Y93.89 Activity, other specified; Y92.89 Other specified places as the place of occurrence of the external cause; Y99.8 Other external cause status; Y90.6 Blood alcohol level of 120-199 mg/100 ml
CPT/HCPCS: 99285; 80053; 82009; 82140; 82150; 82550; 82962; 83690; 85025; 36415; 73110; 83605; 96365; 96366; 29125; 96372; G0482; J1200; J3490; J1630; J3475; J3480; J3411; 93005; 99284

== ENCOUNTER 2022-02-23 10:48 | Emergency (ER) | payer MEDICAID ==
[~2022-02-23] VITALS: Ht 175.3 cm; Wt 77.1 kg
[2022-02-23 10:48] VITALS: BP_SYST 106
--- NOTE | 2022-02-23 11:00 | NUR ---
PT BROUGHT IN BY [facility] AND PLACED IN HALLWAY BED, TRIAGED, REPORT GIVEN TO CRISTAL
[2022-02-23 11:24] LABS: BASOPHILS % (AUTO) 0.9 % (0.0-2.0); EOSINOPHILS # (AUTO) 0.1 K/uL (0.0-0.4); EOSINOPHILS % (AUTO) 2.6 % (0.0-4.0); HEMATOCRIT 44.1 % (36-54); LYMPHOCYTES # (AUTO) 1.2 K/uL (1.0-5.5); LYMPHOCYTES % (AUTO) 29.1 % (20.5-51.5); MEAN CORPUSCULAR HEMOGLOBIN 35 pg (27-31); MEAN CORPUSCULAR HGB CONC 34 % (32-36); MEAN CORPUSCULAR VOLUME 101 fL (79.0-98.0); MONOCYTES # (AUTO) 0.4 K/uL (0.0-1.0); MONOCYTES % (AUTO) 9.3 % (1.7-9.3); NEUTROPHILS # (AUTO) 2.3 K/uL (1.8-7.7); NEUTROPHILS % (AUTO) 58.1 % (40.0-70.0); PLATELET COUNT (AUTO) 244 K/uL (130-430); RED BLOOD CELL COUNT(AUTO) 4.34 MIL/uL (4.2-6.2); RED CELL DISTRIBUTION WIDTH 14.8 % (9.0-15.0)
--- NOTE | 2022-02-23 11:33 | NUR ---
Pt presents to the ER BIB BLS CC: Altered mental staus R/t alcohol intoxication. Pt is aaox3, VSS, NAD, Respirations even and unlabored slow 14, Pt skin intact, bowel sounds present. Pt has moderate control of urine. Provided urinal and turkey sandwich lunch.
[2022-02-23 11:49] LABS: ANION GAP 10 (5-15); CALCIUM 7.9 mg/dL (8.4-11.0); CHLORIDE 111 mmol/L (98-107); CREATININE 0.84 mg/dL (0.55-1.30); GLUCOSE 114 mg/dL (70-99); POTASSIUM 3.1 mmol/L (3.5-5.1); SODIUM SERUM 146 mmol/L (136-145); UREA NITROGEN, BLOOD 5 mg/dL (8-21)
--- NOTE | 2022-02-23 11:54 | NUR ---
Pt ate 100% food and fell asleep, HOB up rails up, bed in lowest position.
[2022-02-23 11:55] LABS: GFR AFRICAN AMERICAN 122 mL/min (>90)
[2022-02-23 11:57] LABS: ALANINE AMINOTRANSFERASE 34 U/L (12-78); ALBUMIN 3.2 g/dL (3.4-4.8); AMYLASE 46 U/L (0-100); ASPARTATE AMINOTRANSFERASE 44 U/L (10-37); LIPASE 9 U/L (73-393); TOTAL BILIRUBIN 0.4 mg/dL (0.0-1.0)
[2022-02-23 11:59] LABS: ALCOHOL, BLOOD 460 mg/dL (<10)
[2022-02-23 12:00] LABS: BARBITURATE, URINE NEGATIVE (NEG <=200); BENZODIAZEPINE, URINE POSITIVE (NEG <=150); CANNABINOID, URINE NEGATIVE (NEG <=50); COCAINE, URINE NEGATIVE (NEG <=150); METHAMPHETAMINES SCREEN,URINE POSITIVE (NEG <=500); PHENCYCLIDINE SCREEN,URINE NEGATIVE (NEG <=25); URINE AMPHETAMINE POSITIVE (NEG <=500); URINE METHADONE NEGATIVE (NEG <=200)
[2022-02-23 12:01] LABS: OPIATE, URINE NEGATIVE (NEG <=100); UR TRICYCLIC ANTIDEPRESSANTS NEGATIVE (NEG <=300); URINE OXYCODONE SCREEN NEGATIVE (NEG <=100); URINE PROPOXYPHENE SCREEN NEGATIVE (NEG <=300)
[2022-02-23 12:20] LABS: ACETONE, SERUM NEGATIVE (NEGATIVE)
--- NOTE | 2022-02-23 14:38 | NUR ---
Pt vss nad, resting without complaints at this time.
[2022-02-23] MEDS ORDERED: NACL 0.9% 1,000 ML IV ONE (15:15)
--- NOTE | 2022-02-23 16:23 | NUR ---
# 20 gauge angiocath placed to RIGHT FOREARM. Use of asceptic technique. Opsite placed over site. Blood return noted. Blood for lab drawn from site. Flushed with 10 cc of normal saline. No evidence of infiltration noted. Patient tolerated well.
[2022-02-23 17:38] VITALS: BP_SYST 118
--- NOTE | 2022-02-23 17:41 | NUR ---
Pt ate 100% of two turkey sandwiches. Pt allowed 500 ml of IV NS bolus. Pt stated must leave to find Vodka. Pt was explained risks of leaving physician care and signed an AMA form.
== END 2022-02-23 17:38 | disposition left against medical advice (07) ==
LOC: SED 10:48
DX: F10.129 Alcohol abuse with intoxication, unspecified (principal); Z79.899 Other long term (current) drug therapy; Y90.6 Blood alcohol level of 120-199 mg/100 ml
CPT/HCPCS: 99283; 80307; 80053; 82009; 82150; 83690; 85025; 36415; 83605; G0482

== ENCOUNTER 2023-07-22 08:00 | Emergency (ER) | payer MEDICAID ==
[~2023-07-22] VITALS: Ht 180.3 cm; Wt 81.6 kg
[2023-07-22 08:06] VITALS: BP_SYST 143; PULSE 74; RESP 16; TEMP 97.8; O2SAT 94
[2023-07-22] MEDS ORDERED: IBUPROFEN 600 MG TABLET PO ONE (08:30)
[2023-07-22 08:58] LABS: BASOPHILS # (AUTO) 0.1 K/uL (0.0-0.2); BASOPHILS % (AUTO) 0.6 % (0.0-2.0); EOSINOPHILS % (AUTO) 0.1 % (0.0-4.0); HEMATOCRIT 52.8 % (36-54); HEMOGLOBIN 18.1 g/dL (14.0-18.0); LYMPHOCYTES # (AUTO) 2.4 K/uL (1.0-5.5); LYMPHOCYTES % (AUTO) 20.2 % (20.5-51.5); MEAN CORPUSCULAR HEMOGLOBIN 33 pg (27-31); MEAN CORPUSCULAR HGB CONC 34 % (32-36); MEAN CORPUSCULAR VOLUME 98 fL (79.0-98.0); MONOCYTES # (AUTO) 0.8 K/uL (0.0-1.0); MONOCYTES % (AUTO) 6.7 % (1.7-9.3); NEUTROPHILS # (AUTO) 8.6 K/uL (1.8-7.7); NEUTROPHILS % (AUTO) 72.4 % (40.0-70.0); PLATELET COUNT (AUTO) 294 K/uL (130-430); RED BLOOD CELL COUNT(AUTO) 5.41 MIL/uL (4.2-6.2); RED CELL DISTRIBUTION WIDTH 13.1 % (9.0-15.0); WHITE BLOOD COUNT (AUTO) 11.9 K/uL (4.8-10.8)
[2023-07-22 09:01] LABS: CALCIUM 8.7 mg/dL (8.4-11.0); CREATININE 0.76 mg/dL (0.55-1.30); POTASSIUM 3.8 mmol/L (3.5-5.1)
[2023-07-22 09:06] LABS: BILIRUBIN,DIRECT 0.2 mg/dL (0.0-0.3); TOTAL BILIRUBIN 0.7 mg/dL (0.0-1.0); TOTAL PROTEIN, SERUM 7.3 g/dL (6.4-8.3)
[2023-07-22] MEDS ORDERED: traMADol HCL HCL 50 MG TABLET (ULTRAM) PO ONE (11:30)
[2023-07-22] MEDS ORDERED: KETOROLAC TROMETHAMINE 30 MG VIAL IM ONE (11:30)
[2023-07-22] MEDS ORDERED: HYDR-3917 PO ×3 (13:16→13:27)
[2023-07-22 13:25] VITALS: BP_SYST 139; PULSE 66; TEMP 97.8; O2SAT 95
== END 2023-07-22 13:01 | disposition home or self-care (01) ==
LOC: SED 08:00
DX: G89.29 Other chronic pain (principal); M54.50 Low back pain, unspecified; F10.129 Alcohol abuse with intoxication, unspecified; Z79.899 Other long term (current) drug therapy; Y90.6 Blood alcohol level of 120-199 mg/100 ml
CPT/HCPCS: 99284; 80076; 80048; 82140; 85025; 36415; 72100; 96372; J1885

== ENCOUNTER 2023-11-13 12:43 | Emergency (ER) | payer MEDICAID ==
[~2023-11-13] VITALS: Ht 175.3 cm; Wt 72.6 kg
[2023-11-13 12:43] VITALS: BP_SYST 97; PULSE 60; RESP 18; TEMP 98.5; O2SAT 99
[~2023-11-13 12:43] MED LIST changes: +OXYC-128 PO; +SULF1TAB48 PO
[2023-11-13] MEDS: MORPHINE 4 MG INJ. 4 MG/ML VIAL IM ONE (13:51)
[2023-11-13 14:11] VITALS: BP_SYST 97; PULSE 60; RESP 18; TEMP 98.5; O2SAT 99
== END 2023-11-13 14:08 | disposition home or self-care (01) ==
LOC: SED 12:43
DX: M54.50 Low back pain, unspecified (principal); G89.29 Other chronic pain; Z79.899 Other long term (current) drug therapy
CPT/HCPCS: 99283; 96372; J2270

== ENCOUNTER 2023-12-14 13:39 | Emergency (ER) | payer MEDICAID ==
[~2023-12-14] VITALS: Ht 175.3 cm; Wt 72.6 kg
[2023-12-14 13:45] VITALS: BP_SYST 126; PULSE 88; RESP 20; TEMP 98; O2SAT 100
[2023-12-14] MEDS ORDERED: OXYC-128 PO (14:32)
[2023-12-14 14:45] VITALS: BP_SYST 126; PULSE 88; RESP 20; TEMP 98; O2SAT 100
== END 2023-12-14 14:45 | disposition home or self-care (01) ==
LOC: SED 13:39
DX: G89.29 Other chronic pain (principal); M54.9 Dorsalgia, unspecified; Z79.899 Other long term (current) drug therapy; Z79.2 Long term (current) use of antibiotics
CPT/HCPCS: 99283

== ENCOUNTER 2024-01-24 15:36 | Emergency (ER) | payer MEDICAID ==
[~2024-01-24] VITALS: Ht 175.3 cm; Wt 70.3 kg
[2024-01-24 15:45] VITALS: BP_SYST 120; PULSE 87; RESP 17; TEMP 97.9; O2SAT 97
[2024-01-24 16:34] LABS: BILIRUBIN,URINE NEGATIVE (NEGATIVE); BLOOD, URINE NEGATIVE (NEGATIVE); CLARITY/URINE CLEAR (CLEAR); COLOR,URINE YELLOW (YELLOW); GLUCOSE,URINE NEGATIVE (NEGATIVE); KETONES,URINE NEGATIVE (NEGATIVE); LEUKOCYTE ESTERASE ,URINE NEGATIVE (NEGATIVE); NITRITE, URINE NEGATIVE (NEGATIVE); PROTEIN URINE NEGATIVE (NEGATIVE); UROBILINOGEN,URINE 0.2 (0.2-1.0)
[2024-01-24] MEDS ORDERED: METH-776 PO (21:25)
[2024-01-24] MEDS ORDERED: PERC10 PO (21:25)
[2024-01-24] MEDS: DEXAMETHASONE SOD PHOSPHATE 10 MG/ML VIAL IM ONE (21:38)
[2024-01-24] MEDS: MORPHINE 4 MG INJ. 4 MG/ML VIAL IM ONE (21:39)
[2024-01-24 21:54] VITALS: BP_SYST 143; PULSE 68; RESP 17; TEMP 97.8; O2SAT 99
== END 2024-01-24 21:53 | disposition home or self-care (01) ==
LOC: SED 15:36
DX: G89.29 Other chronic pain (principal); M54.50 Low back pain, unspecified
CPT/HCPCS: 99284; 81001; 96372; 81003; J1100; J2270

== ENCOUNTER 2024-02-08 16:19 | Emergency (ER) | payer MEDICAID ==
[~2024-02-08] VITALS: Ht 182.9 cm; Wt 68.0 kg
[~2024-02-08 16:19] MED LIST changes: +METH-776 PO
[2024-02-08 16:32] VITALS: BP_SYST 130; PULSE 100; RESP 16; TEMP 97.1; O2SAT 98
[2024-02-08 18:53] LABS: BASOPHILS % (AUTO) 0.7 % (0.0-2.0); EOSINOPHILS # (AUTO) 0.1 K/uL (0.0-0.4); EOSINOPHILS % (AUTO) 0.9 % (0.0-4.0); HEMATOCRIT 44.5 % (36-54); HEMOGLOBIN 15.3 g/dL (14.0-18.0); LYMPHOCYTES # (AUTO) 1.6 K/uL (1.0-5.5); MEAN CORPUSCULAR HEMOGLOBIN 34 pg (27-31); MEAN CORPUSCULAR HGB CONC 34 % (32-36); MEAN CORPUSCULAR VOLUME 99 fL (79.0-98.0); MONOCYTES # (AUTO) 0.3 K/uL (0.0-1.0); MONOCYTES % (AUTO) 4.7 % (1.7-9.3); NEUTROPHILS # (AUTO) 5.3 K/uL (1.8-7.7); NEUTROPHILS % (AUTO) 71.7 % (40.0-70.0); PLATELET COUNT (AUTO) 221 K/uL (130-430); RED BLOOD CELL COUNT(AUTO) 4.48 MIL/uL (4.2-6.2); RED CELL DISTRIBUTION WIDTH 14.6 % (9.0-15.0); WHITE BLOOD COUNT (AUTO) 7.4 K/uL (4.8-10.8)
[2024-02-08 19:22] LABS: ALBUMIN 3.3 g/dL (3.4-4.8); CALCIUM 7.9 mg/dL (8.4-11.0); CREATININE 0.78 mg/dL (0.55-1.30); POTASSIUM 3.2 mmol/L (3.5-5.1); TOTAL BILIRUBIN 0.9 mg/dL (0.0-1.0); TOTAL PROTEIN, SERUM 5.7 g/dL (6.4-8.3)
[2024-02-08] MEDS: NACL 0.9% 1,000 ML IV ONE (19:22)
[2024-02-08 19:29] LABS: BILIRUBIN,DIRECT 0.2 mg/dL (0.0-0.3)
[2024-02-08 23:30] VITALS: BP_SYST 128; PULSE 80; RESP 20; TEMP 97.2; O2SAT 96
== END 2024-02-08 23:24 | disposition home or self-care (01) ==
LOC: SED 16:19
DX: F10.129 Alcohol abuse with intoxication, unspecified (principal); G89.29 Other chronic pain; M54.9 Dorsalgia, unspecified; Z79.899 Other long term (current) drug therapy; Z79.2 Long term (current) use of antibiotics; Y90.8 Blood alcohol level of 240 mg/100 ml or more
CPT/HCPCS: 99283; 96360; 80076; 80048; 85025; 36415; G0482; J7030

== ENCOUNTER 2024-03-21 18:01 | Emergency (ER) | payer MEDICAID ==
[~2024-03-21] VITALS: Ht 175.3 cm; Wt 72.6 kg
[2024-03-21 18:08] VITALS: BP_SYST 142; PULSE 100; RESP 17; TEMP 97.4; O2SAT 94
[2024-03-21 18:48] LABS: BASOPHILS # (AUTO) 0.3 K/uL (0.0-0.2); BASOPHILS % (AUTO) 4.1 % (0.0-2.0); EOSINOPHILS # (AUTO) 0.1 K/uL (0.0-0.4); EOSINOPHILS % (AUTO) 1.6 % (0.0-4.0); HEMATOCRIT 45.2 % (36-54); HEMOGLOBIN 15.4 g/dL (14.0-18.0); LYMPHOCYTES # (AUTO) 1.4 K/uL (1.0-5.5); LYMPHOCYTES % (AUTO) 18.8 % (20.5-51.5); MEAN CORPUSCULAR HEMOGLOBIN 34 pg (27-31); MEAN CORPUSCULAR HGB CONC 34 % (32-36); MEAN CORPUSCULAR VOLUME 100 fL (79.0-98.0); MONOCYTES # (AUTO) 0.7 K/uL (0.0-1.0); MONOCYTES % (AUTO) 9.5 % (1.7-9.3); NEUTROPHILS # (AUTO) 4.8 K/uL (1.8-7.7); PLATELET COUNT (AUTO) 278 K/uL (130-430); RED BLOOD CELL COUNT(AUTO) 4.53 MIL/uL (4.2-6.2); RED CELL DISTRIBUTION WIDTH 13.7 % (9.0-15.0); WHITE BLOOD COUNT (AUTO) 7.3 K/uL (4.8-10.8)
[2024-03-21] MEDS ORDERED: MAGNESIUM SULFATE 1 GM/2 ML VIAL ONE (19:24)
[2024-03-21] MEDS ORDERED: FOLIC ACID 5 MG/ML VIAL IV ONE (19:24)
[2024-03-21] MEDS ORDERED: THIAMINE HCL 200 MG/2 ML VIAL ONE (19:24)
[2024-03-21] MEDS ORDERED: MVI 10 ML VIAL IV ONE (19:24)
[2024-03-21 19:25] LABS: ALBUMIN 3.6 g/dL (3.4-4.8); CALCIUM 8.4 mg/dL (8.4-11.0); CREATININE 1.25 mg/dL (0.55-1.30); POTASSIUM 3.8 mmol/L (3.5-5.1); TOTAL BILIRUBIN 0.5 mg/dL (0.0-1.0); TOTAL PROTEIN, SERUM 6.7 g/dL (6.4-8.3)
[2024-03-21 19:26] LABS: BILIRUBIN,DIRECT 0.2 mg/dL (0.0-0.3)
[2024-03-21] MEDS: ONDANSETRON HCL 4 MG/2 ML VIAL IVP ONE (19:27)
[2024-03-21] MEDS: FOLIC ACID 1 MG, THIAMINE HCL 100 MG, MAGNESIUM SULFATE 1 GM, MVI 10 ML in NACL 0.9% 1,... IV ONE (19:36)
[2024-03-21 19:40] VITALS: TEMP 98
[2024-03-21] MEDS: KETOROLAC TROMETHAMINE 30 MG VIAL IVP ONE (19:56)
[2024-03-21] MEDS: LORazepam 2 MG/ML VIAL IVP ONE (20:04)
[2024-03-21 21:23] VITALS: BP_SYST 121; PULSE 75; RESP 18; O2SAT 98
== END 2024-03-21 21:23 | disposition home or self-care (01) ==
LOC: SED 18:01
DX: F10.129 Alcohol abuse with intoxication, unspecified (principal); F17.200 Nicotine dependence, unspecified, uncomplicated; Z98.890 Other specified postprocedural states; Z79.899 Other long term (current) drug therapy; Z79.2 Long term (current) use of antibiotics; Y90.8 Blood alcohol level of 240 mg/100 ml or more
CPT/HCPCS: 99284; 96365; 96375; 80076; 80048; 83690; 83735; 85025; 36415; 93005; G0482; J3490; J1885; J2060; J3475; J2405; J3411

== ENCOUNTER 2024-04-23 12:08 | Emergency (ER) | payer MEDICAID ==
[~2024-04-23] VITALS: Ht 170.2 cm; Wt 53.5 kg
[2024-04-23 12:30] VITALS: BP_SYST 118; PULSE 80; RESP 18; TEMP 97.3; O2SAT 98
[2024-04-23] MEDS ORDERED: OXYC-128 PO (12:42)
[2024-04-23 13:45] VITALS: BP_SYST 118; PULSE 80; RESP 18; TEMP 97.3; O2SAT 98
[2024-04-30] MEDS ORDERED: BUSP5TAB3 PO (17:06)
== END 2024-04-23 13:43 | disposition home or self-care (01) ==
LOC: SED 12:08
DX: G89.29 Other chronic pain (principal); M54.9 Dorsalgia, unspecified; Z76.0 Encounter for issue of repeat prescription; Z79.899 Other long term (current) drug therapy; Z79.2 Long term (current) use of antibiotics
CPT/HCPCS: 99281

== ENCOUNTER → 2024-04-30 | Emergency (ER) | payer MEDICAID ==
[~2024-04-30] VITALS: Ht 175.3 cm; Wt 83.9 kg
[~2024-04-30] MED LIST changes: +BUSP5TAB3 PO; +GASTROGRAFIN 120 ML ONE
[2024-04-30 16:45] VITALS: BP_SYST 124; PULSE 97; RESP 18; TEMP 97.7; O2SAT 98
== END | disposition home or self-care (01) ==
LOC: SED 16:35
DX: M54.9 Dorsalgia, unspecified (principal); Z76.0 Encounter for issue of repeat prescription; Z79.899 Other long term (current) drug therapy
CPT/HCPCS: 99281; 99283; Q9963